=== PATIENT | female | born 1995 | race Caucasian/White ===

== ENCOUNTER 2020-01-07 21:04 | Emergency (ER) | payer SELFPAY ==
[2020-01-07 21:15] VITALS: BP 121/71; PULSE 116; RESP 18; TEMP 37.2; O2SAT 97; BMI 22.3
--- NOTE | 2020-01-07 21:45 | ED_ITS ---
HPI - Fever General: Chief Complaint: Fever Stated Complaint: fever/sob Time Seen by Provider: 01/07/20 21:10 History of Present Illness: HPI Narrative: Patient is a 24-year-old female comes to the ED with a fever, chills, cough body aches. Symptoms started about 4 days ago. Patient has also having nasal congestion and drainage and sore throat. Denies any ear pain, shortness of breath, vomiting, abdominal pain, hematuria, dysuria, diarrhea or constipation. Patient states she feels a little nauseous but does not want any anti-nausea medications while here in the ED. Pt's concerned that their family could have been exposed to COVID-19. Father works for [employer] and heard that 1 of their frequent [employer] customers tested positive for COVID- 19. Associated symptoms: Reports chills, nasal congestion and nausea; Deny abdominal pain, back/flank pain, chest pain, diarrhea, dysuria, headache(s) or vomiting Review of Systems Const: Reports: fever, chills and body aches; Denies: fatigue Eyes: Denies: change in vision or eye discomfort ENMT: Reports: throat pain, painful swallowing, nasal discharge and nasal congestion Card: Denies: chest pain, palpitations, edema, swelling of feet/ankles, shortness of breath on exertion or shortness of breath when lying down Resp: Reports: non-productive cough; Denies: shortness of breath or productive cough GI: Reports: nausea; Denies: abdominal pain, vomiting, diarrhea, constipation or blood in stool : Denies: flank pain, painful urination or blood in urine Musc: Denies: neck pain, back pain or extremity swelling Skin/Breast: Denies: rash or new lesion Neuro: Denies: headache, numbness in extremities or weakness in extremities [facility] PFSH: Social History Smoking and tobacco status: current every day smoker Physical Exam Narrative: EXAM NARRATIVE: Patient is a 24-year-old female who is sitting comfortably in the exam chair when I enter the room. She is showing no signs of acute distress, pain or respiratory distress. Const: COMMON NORMALS: oriented x3 HENMT: COMMON NORMALS: normocephalic and TM's normal bilaterally HEAD & SCALP: normocephalic TYMPANIC MEMBRANE: TM's normal bilaterally MOUTH: oral and palatal mucosa normal THROAT: uvula midline and posterior oropharynx abnormal erythema; no exudates Neck/C-Spine: COMMON NORMALS: supple GENERAL: Yes normal visual inspection Resp: COMMON NORMALS: normal respiratory effort, no retractions, no use of accessory muscles and clear to auscultation bilaterally EFFORT & INSPECTION: Yes able to speak in complete sentences, No respiratory distress, No labored and No audible wheezes AUSCULTATION: clear to auscultation bilaterally and no wheezes Cardio: COMMON NORMALS: regular rate, regular rhythm, S1 normal heart sound, S2 normal heart sound, no gallops, no clicks, no murmurs and peripheral pulses 2+ throughout RATE: regular rate RHYTHM: regular rhythm HEART SOUNDS: S1 normal and S2 normal PERIPHERAL PULSES: pulses 2+ throughout GI: COMMON NORMALS: normal to inspection, nondistended, normoactive bowel sounds, soft to palpation, non-tender and no masses PALPATION: Yes soft : COMMON NORMALS: Yes no CVA tenderness BLADDER/KIDNEY EXAM: Yes no CVA tenderness Back/Pelvis: COMMON NORMALS: no CVA tenderness Extremity: COMMON NORMALS: normal to inspection Neuro: COMMON NORMALS: oriented x3 and moves all extremities Skin: COMMON NORMALS: no rashes or lesions noted GENERAL SKIN EXAM: no rashes or lesions noted and dry skin Course Vital Signs: Vital signs: Vital Signs Temperature 98.9 F 01/07/20 21:15 Pulse Rate 104 H 01/07/20 23:41 Respiratory Rate 17 01/07/20 23:41 Blood Pressure 107/72 01/07/20 23:41 Pulse Oximetry 99 01/07/20 23:41 MDM - Fever Lab Data: Attestation: I reviewed the patient's lab results. Labs: Lab Results 01/07/20 01/07/20 Range/Units 21:35 21:35 Influenza Type A A g Negative (Negative) Influenza Type B A g Negative (Negative) Group A Strep Rapi d Negative (Negative) Imaging Data^: CXR: Attestation: I personally reviewed and interpreted this imaging study as follows: Radiologist's impression: [facility] [address] [address] XRay Report Signed Patient: Yaneli Steel Unit #: [id number] : 1995 Age/Sex: 24 / F ADM Date: 01/07/20 Loc: ER Room/Bed: Attending Dr: Ordering Provider/Ordering MD: Agusto Watts Date of Service: 01/07/20 Procedure(s): XR chest 1V portable [id number] Accession Number(s): [id number] Report Number: [id number] PROCEDURE INFORMATION: Exam: XR Chest, 1 View Exam date and time: 01/07/2020 9:56 PM Age: 24 years old Clinical indication: Cough and fever; Additional info: Fever and cough TECHNIQUE: Imaging protocol: XR of the chest Views: 1 view. COMPARISON: No relevant prior studies available. FINDINGS: Lungs: No CHF/pulmonary edema. Visible lungs appear essentially clear. Pleural space: No visible pneumothorax. No definite pleural fluid. Heart/Mediastinum: Heart size is within normal limits. Bones/joints: No significant acute finding. XR/XR chest 1V portable [id number] IMPRESSION: 1. Unremarkable single view chest. 2. Other findings discussed above. Dictated By: Ousmane Rogers MD Signed By: Ousmane Rogers MD Signed Date/Time: 01/07/202232 DD/ 31 Discharge Plan Discharge Patient Disposition: Home, Self-Care Clinical Impression: Viral syndrome Condition: Stable Prescriptions: No Action No Known Home Medications RF: 0 Discharge Orders: Discharge Order (Routine); Ordered 01/07/20 Ordered By: Agusto Watts Referrals: Agusto Gandhi MD [Family Provider] - Discharge Diet: Regular Discharge Activity: Resume usual activity and Limit activity as instructed Patient Instructions: Viral Syndrome - Adult Activity Restrictions/Additional Instructions: Follow-up with your PCP in 7 to 10 days for reevaluation. Take Tylenol for any fevers. Drink plenty fluids and stay hydrated. COVID-19 testing was performed and results should be complete in the next 48 hours. Self quarantine during that time and if you do test positive self quarantine for 14 days. Return to the ED if you are having worsening symptoms or any trouble breathing. Discharge Date/Time: 01/07/20 23:01 Coding Level of Care Code ED Narrow Fabric Loom Fixer for Hans Fwlelia Exam Comprehensive
[2020-01-07 22:26] LABS: Influenza A by IFA Negative (Negative); Influenza B by IFA Negative (Negative)
[2020-01-07 22:27] VITALS: BP 111/67; PULSE 98; RESP 14; O2SAT 100
[2020-01-07 22:27] LABS: Rapid Strep A Test Negative (Negative)
[2020-01-07 23:03] VITALS: RESP 16
[2020-01-07 23:41] VITALS: BP 107/72; PULSE 104; RESP 17; O2SAT 99
[2020-01-11 08:28] LABS: Coronavirus Overall Results NOT DETECTED
--- NOTE | 2020-01-11 10:18 | PC.NURSE ---
CALLED PT TO INFORM HER THAT HER RESULTS WERE NEGATIVE FOR COVID-19.
== END 2020-01-07 23:01 | disposition home or self-care (01) ==
PROVIDERS: Emergency Provider Physician Assistant; Family Provider Family Medicine
DX: B34.9 Viral infection, unspecified (principal); F17.200 Nicotine dependence, unspecified, uncomplicated
CPT/HCPCS: 12345; 71045; 87081; 87635; 87804; 87880; 99282; 99283

== ENCOUNTER 2021-03-20 11:18 | Emergency (ER) | payer SELFPAY ==
[2021-03-20] VITALS (7 sets, daily range): BP systolic 102–117; BP diastolic 59–73; PULSE 73–79; RESP 16–20; TEMP 36.7–36.8; O2SAT 97–100; BMI 20.7
--- NOTE | 2021-03-20 12:11 | ED_ITS ---
HPI - Abdominal Pain General: Chief Complaint: Abdominal Pain Stated Complaint: 2 months lower ABD pain Time Seen by Provider: 03/20/21 12:02 Source: patient Mode of arrival: ambulatory Limitations: no limitations History of Present Illness: HPI narrative: 25-year-old female patient 3 para 1 with a prior miscarriage who presents to the emergency department with lower abdominal pain. She states that she is about 8 weeks . Abdominal pain has been intermittent and has been going on for about 2 weeks. About 2 days ago she had some spotting but that has spontaneously resolved. Because the pain is persistent she presents to the emergency department to be evaluated. She denies any fever, has nausea and vomiting daily which she thinks is from the . She denies diarrhea. Denies any dysuria or hematuria. MD elicited complaint: abdominal pain Onset (ago): week(s) (2) Pain Consistency: intermittent Location: Other (lower abdomen) Severity: moderate Quality: cramping Radiation: none Exacerbating factors: nothing Relieving factors: nothing Associated Symptoms: Reports nausea and vomiting; Denies anorexia, belching, bloating, change in bowel habits, change in stool character, chills, coffee ground emesis, constipation, GI cramping, diarrhea, dyspepsia, dysuria, excessive flatus, fever(s), heartburn, hematochezia, hematuria, hematemesis, fecal incontinence, loose stools, melena, poor appetite and syncope Review of Systems General: Reports: 10 or more systems reviewed and unremarkable except in HPI and below Const: Denies: fever(s) or chills Card: Denies: syncope GI: Reports: nausea and vomiting; Denies: hematemesis, coffee ground emesis, heartburn, diarrhea, constipation, bloating, GI cramping, belching, excessive flatus, fecal incontinence, change in bowel habits, change in stool character, hematochezia or melena : Denies: dysuria or hematuria PFSH ED PFSH: Social History (Reviewed 03/20/21 @ 12:15 by Felisha Flood MD, [facility] [place] [facility] [place] Smoking and tobacco status: current every day smoker Physical Exam Const: COMMON NORMALS: no acute distress, average body habitus, patient oriented x3, no limitations, healthy appearing, alert and well nourished HENMT: COMMON NORMALS: normocephalic, atraumatic and moist oral mucous membranes HEAD & SCALP: normocephalic and atraumatic Neck/C-Spine: COMMON NORMALS: no meningeal signs and no JVD Resp: COMMON NORMALS: normal respiratory effort, No retractions, No use of accessory muscles, clear to auscultation bilaterally and percussion normal AUSCULTATION: clear to auscultation bilaterally PERCUSSION: percussion normal Cardio: COMMON NORMALS: no JVD, regular rate, regular rhythm, S1 normal heart sound present, S2 normal heart sound present, No gallops present (Cardio), No cl icks present (Cardio), No murmurs present (Cardio), No rub (Cardio) and Peripheral pulses 2+ throughout RATE: regular rate RHYTHM: regular rhythm HEART SOUNDS: S1 normal heart sound present and S2 normal heart sound present PERIPHERAL PULSES: Peripheral pulses 2+ throughout GI: COMMON NORMALS: Normal to inspection, nondistended, normoactive bowel sounds present, Soft to palpation, No hepatosplenomegaly present, no masses and no bruits PALPATION: Yes Soft to palpation, Yes Tenderness to palpation present (GI) (suprapubic) Details: LLQ and RLQ, No Guarding due to palpation present (GI), Yes No hepatosplenomegaly present and No Rebound tenderness present : COMMON NORMALS: Yes no CVA tenderness BLADDER/KIDNEY EXAM: Yes no CVA tenderness Back/Pelvis: COMMON NORMALS: no CVA tenderness Extremity: COMMON NORMALS: normal to inspection, full ROM, capillary refill normal, no calf tenderness and no pedal edema Neuro: COMMON NORMALS: patient oriented x3 SENSORIUM/ORIENTATION: Yes alert MENINGEAL SIGNS: Yes no meningeal signs Course Reevaluation(s): Reevaluation #1: Discussed her lab and imaging findings with her. Also discussed my conversation with Dr. Whatley with her. She strongly counseled that she is not to do any lifting, no sexual intercourse, nothing in her vagina. She chooses to follow-up with Dr. Gandhi. She is advised to call his office tomorrow to schedule an appointment. She voiced understanding and is in agreement with the plan. Time: 14:22 Consultations: Consultation #1: Discussed the patient with Dr. Whatley, target worker on-call. She advised that the patient does not do any lifting, nothing in the vagina, and it showed spontaneously resolved. She needs to follow-up in the clinic. Time: 14:08 Vital Signs: Vital signs: Vital Signs Temperature 98.2 F 03/20/21 13:30 Pulse Rate 73 03/20/21 14:52 Respiratory Rate 18 03/20/21 14:52 Blood Pressure 102/61 03/20/21 14:52 Pulse Oximetry 97 03/20/21 14:52 MDM - Abdominal Pain MDM Narrative: Medical decision making narrative: 25-year-old female who presents to the emergency department with lower abdominal pain. She is in her first trimester. Evaluation in the emergency department including ultrasound shows twin with a small subchorionic hematoma. Beta-hCG quantitative levels are within expected range. She is counseled on no lifting nothing in the vagina to follow-up with her target worker. She is given a work note to reflect this. Medical Records: Attestation: I reviewed the patient's medical records. Lab Data: Attestation: I reviewed the patient's lab results. Labs: Lab Results 03/20/21 03/20/21 03/20/21 Range/Units 12:00 12:15 12:15 WBC 5.2 (4.0-10.0) 10^3/ uL RBC 3.54 L (4.1-5.3) 10^6/u L Hgb 11.3 L (11.5-15.3) g/dL Hct 31.5 L (37.0-47.0) % MCV 89.0 (81-99) fL MCH 31.9 (28.0-34.0) pg MCHC 35.9 (30.0-36.0) g/dL RDW 11.9 L (12.1-15.1) % Plt Count 175 (130-400) 10^3/c mm MPV 11.8 H (7.4-10.4) fL Neut % (Auto) 64.8 % Lymph % (Auto) 25.9 % Pra[place] % (Auto) 5.4 % Eos % (Auto) 2.9 % Baso % (Auto) 0.8 % Neut # (Auto) 3.36 (1.8-7.7) 10^3/u L Lymph # (Auto) 1.3 (0.8-4.8) 10^3/u L Pra[place] # (Auto) 0.3 (0.2-0.9) 10^3/u L Eos # (Auto) 0.2 (0.0-0.8) 10^3/u L Baso # (Auto) 0.0 (0.0-0.1) 10^3/u L Nucleated RBC % (a uto) 0 % Nucleated RBCs # 0.0 /100WBC Sodium 133 L (136-145) mmol/L Potassium 3.7 (3.5-5.1) mmol/L Chloride 100 (98-107) mmol/L Carbon Dioxide 23 (22-29) mmol/L Anion Gap 13.7 (5-19) BUN 5 L (6-20) mg/dL Creatinine 0.4 L (0.5-0.9) mg/dL GFR Calculation 196.1 H (90-130) mL/min Glucose 81 (65-115) mg/dL Calculated Osmolal ity 272 L (285-295) mOsm/k g Calcium 8.9 (8.5-10.5) mg/dL Total Bilirubin 0.4 (0.15-1.2) mg/dL AST 15 (0-32) U/L ALT 17 (0-33) U/L Alkaline Phosphata se 41 (35-105) IU/L Total Protein 6.4 L (6.6-8.7) g/dL Albumin 4.0 (3.5-5.2) g/dL Globulin 2.4 (1.3-4.6) g/dL Lipase 10 L (13-60) U/L Ser , Kaleb i-Qnt 859103.00 mIU/mL Urine Color Straw (Yellow) Urine Appearance Clear (CLEAR) Urine pH 5 (5-7) Ur Specific Gravit y 1.005 (1.005-1.030) Urine Protein Neg (Negative) Urine Glucose (UA) Norm (Normal) Urine Ketones Negative (Negative) Urine Blood Neg (Negative) Urine Nitrate Negative (Negative) Urine Bilirubin Neg (Negative) Urine Urobilinogen Norm (Negative) mg/dL Ur Leukocyte Farida ase Negative (Negative) Imaging Data ^: US OB: Radiologist's impression: [address] [id number] ReportSigned Patient: Yaneli Steel #: [id number]: [id number]#:[id number]/Sex: 25 / FADM Date: 03/20/21Loc: ERRoom/Bed:Attending Dr: Ordering Provider/Ordering MD: Felisha Flood MD, [facility] [place] [facility] [place] Date of Service: 03/20/21 Procedure(s): US OB <= 14 wk fetus twins Accession Number(s): [id number] Report Number: [id number] WS: [id number] ULTRASOUND EARLY TECHNIQUE: Transabdominal sonography of the pelvis was performed. Followed by transvaginal sonography to better evaluate the uterus and ovaries. CLINICAL INFORMATION: lower abd pain, spotting 2 days ago LMP: 01/24/2021 Beta hCG: Unknown. COMPARISON: None. FINDINGS: Suspected early intrauterine twin gestation. Small subchorionic hematoma measuring 1 cc. Subchorionic hematoma measures 1.3 x 1.0 x 1.1 cm. Cervix is closed measuring 4.2 cm FETUS A Estimated gestational age: 7w6d Estimated delivery October 31, 2021 Yolk sac: 0.5 cm. [place] rump length (CRL): 1.5 cm. heart motion: 147 BPM. FETUS B Estimated gestational age: 7w6d Estimated delivery October 31, 2021 Yolk sac: 0.55cm [place] rump length (CRL): 1.46 cm. heart motion: 147 BPM. OVARIES Right ovary: 3.8 x 3.0 x 3.1 cm. Right corpus luteum cyst measuring 1.8 x 2.1 x 1.8 cm Left ovary: 2.0 x 2.5 x 3.2 cm US/US OB <= 14 wk fetus twins IMPRESSION: 1. Single live intrauterine twin . 2. Suggestion of inter-twin membrane although too early to delineate chorionicity 3. Estimated gestational age; 7w6d with estimated delivery October 31, 2021 4. Cervix is long and closed. 5. Small amount of subchorionic hematoma measuring 1 cc. 6. Right corpus luteum cyst measuring 1.8 x 2.1 x 1.8 cm Dictated By:Zachary Jennings MDSigned By:Zachary Jennings MDSigned Date/Time:03/20/21 1334DD/ 1320 Discharge Plan Discharge Patient Disposition: Home Clinical Impression: Subchorionic hematoma in first trimester Qualifiers: Fetus number: single or unspecified fetus Qualified Code(s): O41.8X10 - Other specified disorders of amniotic fluid and membranes, first trimester, not applicable or unspecified Twin gestation in first trimester Qualifiers: Multiple gestation type: unspecified Qualified Code(s): O30.001 - Twin , unspecified number of placenta and unspecified number of amniotic sacs, first trimester Condition: Stable Prescriptions: No Action No Known Home Medications RF: 0 Discharge Orders: Discharge ED (Routine); Ordered 03/20/21 Ordered By: Felisha Flood Referrals: Agusto Gandhi MD [Physician] - 1-3 days Discharge Diet: Usual diet Discharge Activity: Limit activity as instructed Patient Instructions: Threatened Miscarriage (ED), Abdominal Pain in (ED) Activity Restrictions/Additional Instructions: Return for any new or worsening symptoms. Follow-up with Dr. Gandhi as soon as possible. No lifting, no sex, nothing in the vagina until you are cleared by Dr. Gandhi. Stand Alone Forms: Work/School Release Coding Level of Care Code ED Inspector Receiving for Chg Fwd Exam Comprehensive
[2021-03-20 12:18] LABS: Add Urine Microscopic? NO; Charge for UA Resulting for Rev
[2021-03-20 12:28] LABS: Bilirubin Urine Neg (Negative); Blood Urine Neg (Negative); Glucose Urine UA Norm (Normal); Ketones Urine Negative (Negative); Leukocyte Esterase Urine Negative (Negative); Nitrate Urine Negative (Negative); Protein Urine Neg (Negative); Specific Gravity, Urine 1.005 (1.005-1.030); Urine Appearance Clear (CLEAR); Urine Color Straw (Yellow); Urobilinogen Urine Norm (Negative); pH Urine 5 (5-7)
[2021-03-20 12:43] LABS: Basophils % 0.8 %; Eosinophils # 0.2 10^3/uL (0.0-0.8); Eosinophils % 2.9 %; Hematocrit 31.5 % (37.0-47.0); Hemoglobin 11.3 g/dL (11.5-15.3); Lymphocytes # 1.3 10^3/uL (0.8-4.8); Lymphocytes % 25.9 %; Mean Corpuscular HGB Conc 35.9 g/dL (30.0-36.0); Mean Corpuscular Hemoglobin 31.9 pg (28.0-34.0); Mean Platelet Volume 11.8 fL (7.4-10.4); Monocytes # 0.3 10^3/uL (0.2-0.9); Monocytes % 5.4 %; Neutrophils # 3.36 10^3/uL (1.8-7.7); Neutrophils % 64.8 %; Nucleated Red Blood Cells % 0 %; Platelet Count 175 10^3/cmm (130-400); Red Blood Count 3.54 10^6/uL (4.1-5.3); Red Cell Distribution Width 11.9 % (12.1-15.1); White Blood Count 5.2 10^3/uL (4.0-10.0)
[2021-03-20 13:31] LABS: Alanine Aminotransferase 17 U/L (0-33); Alkaline Phosphatase 41 IU/L (35-105); Anion Gap 13.7 (5-19); Aspartate Amino Transferase 15 U/L (0-32); Blood Urea Nitrogen 5 mg/dL (6-20); Calcium 8.9 mg/dL (8.5-10.5); Carbon Dioxide 23 mmol/L (22-29); Chloride 100 mmol/L (98-107); Globulin 2.4 g/dL (1.3-4.6); Glomerular Filtration Rate 196.1 mL/min (90-130); Glucose 81 mg/dL (65-115); Lipase 10 U/L (13-60); Osmolality Calculated 272 mOsm/kg (285-295); Potassium 3.7 mmol/L (3.5-5.1); Sodium 133 mmol/L (136-145); Total Bilirubin 0.4 mg/dL (0.15-1.2); Total Protein 6.4 g/dL (6.6-8.7)
== END 2021-03-20 14:44 | disposition home or self-care (01) ==
PROVIDERS: Emergency Provider Family Medicine
DX: O41.8X10 Other specified disorders of amniotic fluid and membranes, first trimester, not applicable or unspecified (principal); O30.001 Twin pregnancy, unspecified number of placenta and unspecified number of amniotic sacs, first trimester; Z3A.01 Less than 8 weeks gestation of pregnancy; F17.210 Nicotine dependence, cigarettes, uncomplicated
CPT/HCPCS: 76801; 76802; 80053; 81003; 83690; 84702; 85025; 99283

== ENCOUNTER → 2021-03-26 14:02 | Outpatient (BNVA) | payer MEDICAID, SELFPAY | PROVIDERS: Visit Provider Nurse Practitioner Women's Health | DX: N92.6 Irregular menstruation, unspecified (principal); O30.001 Twin pregnancy, unspecified number of placenta and unspecified number of amniotic sacs, first trimester | CPT/HCPCS: 81025 ==

== ENCOUNTER → 2021-04-03 13:52 | Outpatient (BNVA) | payer BC, MEDICAID, SELFPAY | PROVIDERS: Visit Provider Nurse Practitioner Women's Health | DX: Z34.80 Encounter for supervision of other normal pregnancy, unspecified trimester (principal); Z81.0 Family history of intellectual disabilities | CPT/HCPCS: 81000 ==

== ENCOUNTER → 2021-04-12 14:02 | Outpatient (BNVA) | payer BC, MEDICAID, SELFPAY | PROVIDERS: Visit Provider Obstetrics & Gynecology | DX: O09.899 Supervision of other high risk pregnancies, unspecified trimester (principal) | CPT/HCPCS: 80307; 81000; 85025; 86592; 86762; 86803; 86850; 86900; 87086; 87340; 87806 ==

== ENCOUNTER → 2021-04-17 15:07 | Outpatient (BNVA) | payer BC, MEDICAID, SELFPAY | PROVIDERS: Visit Provider Obstetrics & Gynecology | DX: O09.899 Supervision of other high risk pregnancies, unspecified trimester (principal); Z12.4 Encounter for screening for malignant neoplasm of cervix; Z11.3 Encounter for screening for infections with a predominantly sexual mode of transmission; O30.001 Twin pregnancy, unspecified number of placenta and unspecified number of amniotic sacs, first trimester; O99.331 Smoking (tobacco) complicating pregnancy, first trimester; Z81.0 Family history of intellectual disabilities | CPT/HCPCS: 81000; 87491; 87591; 87661; 88175 ==

== ENCOUNTER 2021-04-27 23:21 | Emergency (ER) | payer BC, MEDICAID, SELFPAY ==
[2021-04-27 23:43] VITALS: BP 100/68; PULSE 96; RESP 20; TEMP 36.1; O2SAT 100; BMI 20.8
--- NOTE | 2021-04-27 23:55 | ED_ITS ---
HPI - General: Chief complaint: Vaginal Bleeding Stated complaint: 13 WKS /BLEEDING Time Seen by Provider: 04/27/21 23:27 Source: patient Mode of arrival: ambulatory Limitations: no limitations History of Present Illness: HPI Narrative: 25-year-old female is currently 13 weeks states that she had intercourse roughly 1 hour ago and had some slight bleeding afterwards. States that she had some spotting not enough to even notice on the pad she states she noticed the spotting when wiping. She had some cramping as well that is since resolved. She states her bleeding is resolved as well. Denies any vomiting or diarrhea. Denies any vaginal discharge. Associated symptoms: Deny abdominal pain, headache(s), nausea or vomiting Review of Systems Const: Denies: fever(s), chills, body aches or change in appetite Eyes: Denies: blurry vision or eye discomfort ENMT: Denies: throat pain or dental pain Card: Denies: chest pain Resp: Denies: dyspnea GI: Denies: abdominal pain, nausea, vomiting or diarrhea : Reports: vaginal bleeding Musc: Denies: neck pain or back pain Skin/Breast: Denies: rash Neuro: Denies: headache(s) Psych: Denies: depression Mariano/Lymph: Denies: easy bruising All/Imm: Denies: urticaria PFSH ED PFSH: Medical History No pertinent past medical history neghx: htn,dm,thyroid,dvt/pe PCP: None Surgical History Hx of appendectomy (~2018) Family History Father Colon cancer dx age 51 Hypertension Denies family history of Ovarian cancer Diabetes Heart disease Hypercholesteremia Breast cancer Uterine cancer Thyroid disease Stroke Social History Smoking and tobacco status: current every day smoker Physical Exam Const: COMMON NORMALS: no acute distress, patient oriented x3 and healthy chance earing HENMT: COMMON NORMALS: normocephalic and atraumatic HEAD & SCALP: normocephalic and atraumatic Eye: COMMON NORMALS: Equal, round and reactive pupils present and EOMs intact bilaterally PUPIL: Yes Equal, round and reactive pupils present Neck/C-Spine: COMMON NORMALS: full ROM and supple Chest: COMMONS NORMALS: normal inspection of the chest and normal palpation of entire chest wall Resp: COMMON NORMALS: normal respiratory effort, No retractions, No use of accessory muscles and clear to auscultation bilaterally AUSCULTATION: clear to auscultation bilaterally Cardio: COMMON NORMALS: regular rate, regular rhythm and No murmurs present (Cardio) RATE: regular rate RHYTHM: regular rhythm GI: COMMON NORMALS: Normal to inspection, nondistended, normoactive bowel sounds present, Soft to palpation, non-tender and no masses PALPATION: Yes Soft to palpation Extremity: COMMON NORMALS: normal to inspection and full ROM Neuro: COMMON NORMALS: patient oriented x3, moves all extremities and no focal motor deficits Psych: COMMON NORMALS: mental status grossly normal, Normal thought process present and cooperative THOUGHT PROCESS: Normal thought process present Skin: COMMON NORMALS: no rashes or lesions noted and no wounds GENERAL SKIN EXAM: no rashes or lesions noted Course Vital Signs: Vital signs: Vital Signs Temperature 96.9 F L 04/27/21 23:43 Pulse Rate 96 04/27/21 23:43 Respiratory Rate 20 H 04/27/21 23:43 Blood Pressure 100/68 04/27/21 23:43 Pulse Oximetry 100 04/27/21 23:43 MDM - OB/Uterine Contractions MDM Narrative: Medical decision making narrative: Patient presents with slight bleeding after intercourse likely from intercourse. Did a bedside ultrasound that did show twin consistent with dates both fetuses were moving heart rate of 81 was 154 heart rate of 82 was 148. Ultrasound was normal. Patient refused a pelvic exam here and her bleeding is been very minimal. Patient's Rh type is positive. She is stable for discharge is to follow-up with her OB next week and return if worsening. Discharge Plan Discharge Patient Disposition: Home Clinical Impression: Threatened miscarriage Condition: Stable Prescriptions: No Action prenat.vits,ladonna,bfk-tepi-oldsw Tablet 1 tab PO DAILY RF: 0 ferrous sulfate 325 mg (65 mg iron) tablet 325 mg PO DAILY RF: 0 Discharge Orders: Discharge ED (Routine); Ordered 04/27/21 Ordered By: Estela Mccray Discharge Diet: Advance as tolerated Discharge Activity: Resume usual activity Patient Instructions: Threatened Miscarriage (ED) Coding Level of Care Code ED As[employer]er [employer] for Hans Sweeney
[2021-04-28 00:03] VITALS: BP 100/68; PULSE 98; RESP 20; TEMP 36.1; O2SAT 100
== END 2021-04-28 00:04 | disposition home or self-care (01) ==
PROVIDERS: Emergency Provider Emergency Medicine
DX: O20.0 Threatened abortion (principal); O99.331 Smoking (tobacco) complicating pregnancy, first trimester; F17.200 Nicotine dependence, unspecified, uncomplicated; Z3A.13 13 weeks gestation of pregnancy
CPT/HCPCS: 99281

== ENCOUNTER → 2021-05-13 13:31 | Outpatient (BNVA) | payer BC, MEDICAID, SELFPAY | PROVIDERS: Visit Provider Obstetrics & Gynecology | DX: O09.899 Supervision of other high risk pregnancies, unspecified trimester (principal); O09.892 Supervision of other high risk pregnancies, second trimester; O30.002 Twin pregnancy, unspecified number of placenta and unspecified number of amniotic sacs, second trimester; O99.332 Smoking (tobacco) complicating pregnancy, second trimester; F17.210 Nicotine dependence, cigarettes, uncomplicated; Z81.0 Family history of intellectual disabilities; Z3A.15 15 weeks gestation of pregnancy | CPT/HCPCS: 80307; 81000 ==

== ENCOUNTER 2021-06-05 16:03 | Emergency (ER) | payer BC, MEDICAID, SELFPAY ==
[2021-06-05 17:02] VITALS: BP 105/71; PULSE 91; RESP 17; TEMP 36.8; O2SAT 99
[2021-06-05 20:02] LABS: Basophils # 0.1 10^3/uL (0.0-0.1); Basophils % 0.5 %; Eosinophils # 0.2 10^3/uL (0.0-0.8); Eosinophils % 1.5 %; Hematocrit 31.8 % (37.0-47.0); Hemoglobin 10.7 g/dL (11.5-15.3); Lymphocytes # 1.9 10^3/uL (0.8-4.8); Lymphocytes % 17.1 %; Mean Corpuscular HGB Conc 33.6 g/dL (30.0-36.0); Mean Corpuscular Hemoglobin 31.2 pg (28.0-34.0); Mean Corpuscular Volume 92.7 fl (81-99); Mean Platelet Volume 11.3 fL (7.4-10.4); Monocytes # 0.5 10^3/uL (0.2-0.9); Monocytes % 4.8 %; Neutrophils # 8.26 10^3/uL (1.8-7.7); Neutrophils % 75.6 %; Nucleated Red Blood Cells % 0 %; Platelet Count 243 10^3/cmm (130-400); Red Blood Count 3.43 10^6/uL (4.1-5.3); Red Cell Distribution Width 15.9 % (12.1-15.1); White Blood Count 10.9 10^3/uL (4.0-10.0)
--- NOTE | 2021-06-05 20:53 | W.ED.PREGNAN ---
HPI - General: Chief complaint: Vaginal Bleeding Stated complaint: 19 WKS PREG, CLOTTING & BLEEDING/OB SD ER 1ST Time Seen by Provider: 06/05/21 20:53 History of Present Illness: HPI Narrative: Ms Steel is a 26-year-old lady currently approximately 19 weeks who presents the emergency department due to vaginal bleeding and passing clots. Patient reports first having symptoms with this at approximately 2 months along after having sexual intercourse. Since that time she has had intermittent spotting however the past 8 days she has had significantly more bleeding and passing clots. She endorses no associated significant pain with this. She does have urinary frequency. Overall she is using 6-8 pads per day. She denies abdominal trauma. No other significant changes in health reported, no known provoking, exacerbating, or alleviating factors Date of Last Menstrual Period: 01/23/21 Review of Systems General: Reports: 10 or more systems reviewed and unremarkable except in HPI and below Narrative: CONSTITUTIONAL: denies fever, fatigue, weakness EYES - denies pain, denies loss of vision NOSE - denies congestion or rhinorrhea. THROAT - denies sore throat or difficulty swallowing. CARDIOVASCULAR - denies chest pain and palpitations RESPIRATORY - denies shortness of breath and cough GASTROINTESTINAL - denies abdominal pain, no nausea vomiting, no changes in bowel habits GENITOURINARY - denies dysuria or urinary frequency. See HPI. MUSCULOSKELETAL- denies deformity or pain SKIN - denies rashes or new changed skin lesions NEUROLOGIC - denies focal weakness or sensory changes HEMATOLOGIC/LYMPHATIC - denies easy bruising or lymphadenopathy. [facility] ED PFSH: Medical History No pertinent past medical history neghx: htn,dm,thyroid,dvt/pe PCP: None Surgical History Hx of appendectomy (~2018) Family History Father Colon cancer dx age 51 Hypertension Denies family history of Ovarian cancer Diabetes Heart disease Hypercholesteremia Breast cancer Uterine cancer Thyroid disease Stroke Social History Smoking and tobacco status: current every day smoker Female Reproductive History: Date of last menstrual period: 01/23/21 Physical Exam Narrative: EXAM NARRATIVE: GENERAL/CONSTITUTIONAL - well-appearing. No acute distress. Eyes - PERRL, no conjunctival injection ENMT - Atraumatic external nose and ears. Moist mucous membranes NECK - supple. trachea midline CARDIOVASCULAR - regular rate and rhythm. Peripheral pulses 2+ and equal RESPIRATORY -clear to auscultation bilaterally. No retractions or accessory muscle use. ABDOMEN/GI - Generalized mild tenderness worse in the right hemiabdomen. gravid. No tenderness to percussion or evidence of peritonitis PROJECT SPECIALIST-performed with planetarium technician present. No external lesions, small amount of blood at the introitus dark red. Cervix visually closed. No lacerations or cause of bleeding from inside the vagina. Small amount of dark red blood appears at the cervix. MSK - Extremities without obvious deformity or tenderness to palpation SKIN - Warm, Dry NEURO - alert and appropriately oriented. strength and sensation intact. Moves all extremities equally. PSYCH - Appropriate mood and affect Course ED course: - Patient was seen and evaluated by me at bedside - Patient placed on cardiac monitors, IV access obtained - Initial evaluation notable for as noted above - Labs notable for minimal leukocytosis, normocytic anemia. No significant metabolic abnormalities to explain symptoms. - Ultrasound ordered. - Patient care handed off to overnight physician pending results of ultrasound for disposition. Vital Signs: Vital signs: Vital Signs Temperature 98.3 F 06/05/21 17:02 Pulse Rate 78 06/06/21 00:39 Respiratory Rate 18 06/06/21 00:39 Blood Pressure 122/82 06/06/21 00:39 Pulse Oximetry 98 06/06/21 00:39 MDM - OB/Uterine Contractions Medical Records: Attestation: I reviewed the patient's medical records. Lab Data: Attestation: I reviewed the patient's lab results. Labs: Lab Results 06/05/21 06/05/21 06/05/21 Range/Units 19:57 19:57 21:40 WBC 10.9 H (4.0-10.0) 10^3/ uL RBC 3.43 L (4.1-5.3) 10^6/u L Hgb 10.7 L (11.5-15.3) g/dL Hct 31.8 L (37.0-47.0) % MCV 92.7 (81-99) fl MCH 31.2 (28.0-34.0) pg MCHC 33.6 (30.0-36.0) g/dL RDW 15.9 H (12.1-15.1) % Plt Count 243 (130-400) 10^3/c mm MPV 11.3 H (7.4-10.4) fL Neut % (Auto) 75.6 % Lymph % (Auto) 17.1 % Bent % (Auto) 4.8 % Eos % (Auto) 1.5 % Baso % (Auto) 0.5 % Neut # (Auto) 8.26 H (1.8-7.7) 10^3/u L Lymph # (Auto) 1.9 (0.8-4.8) 10^3/u L [place] # (Auto) 0.5 (0.2-0.9) 10^3/u L Eos # (Auto) 0.2 (0.0-0.8) 10^3/u L Baso # (Auto) 0.1 (0.0-0.1) 10^3/u L Nucleated RBC % (a uto) 0 % Nucleated RBCs # 0.0 /100WBC Sodium 134 L (136-145) mmol/L Potassium 4.2 (3.5-5.1) mmol/L Chloride 100 (98-107) mmol/L Carbon Dioxide 23 (22-29) mmol/L Anion Gap 15.2 (5-19) BUN 4 L (6-20) mg/dL Creatinine 0.3 L (0.5-0.9) mg/dL GFR Calculation 271.1 H (90-130) mL/min Glucose 89 (65-115) mg/dL Calculated Osmolal ity 274 L (285-295) mOsm/k g Calcium 9.3 (8.5-10.5) mg/dL Total Bilirubin 0.3 (0.15-1.2) mg/dL AST 13 (0-32) U/L ALT 10 (0-33) U/L Alkaline Phosphata se 110 H (35-105) IU/L Total Protein 6.7 (6.6-8.7) g/dL Albumin 3.7 (3.5-5.2) g/dL Globulin 3.0 (1.3-4.6) g/dL Urine Color Other (Yellow) Urine Appearance Clear (CLEAR) Urine pH 6.5 (5-7) Ur Specific Gravit y 1.005 (1.005-1.030) Urine Protein Neg (Negative) Urine Glucose (UA) Norm (Normal) Urine Ketones Negative (Negative) Urine Blood 3+ H (Negative) Urine Nitrate Negative (Negative) Urine Bilirubin Neg (Negative) Urine Urobilinogen Norm (Negative) mg/dL Ur Leukocyte Farida ase 2+ H (Negative) Urine RBC Too numerous to c nt H (0-2) /hpf Urine WBC >100 H (0-5) /hpf Ur Squamous Epith Cells 0-4 H (0-5) /hpf Amorphous Sediment Not Reportable Urine Bacteria Trace (NONE) /hpf Discharge Plan Discharge Patient Disposition: Home Clinical Impression: Multiple gestation, Vaginal bleeding, Threatened , Abnormal urinalysis Condition: Stable Prescriptions: New nitrofurantoin macrocrystal 100 mg capsule 100 mg PO BID 10 Days Qty: 20 RF: 0 No Action prenat.vits,ladonna,iif-yjbb-aogsr Tablet 1 tab PO DAILY RF: 0 ferrous sulfate 325 mg (65 mg iron) tablet 325 mg PO DAILY RF: 0 Discharge Orders: Discharge ED (Routine); Ordered 06/06/21 Ordered By: Estela Mccray Discharge Diet: Usual diet Discharge Activity: Resume usual activity Patient Instructions: Hematuria - Female, Threatened Miscarriage (ED) Activity Restrictions/Additional Instructions: Thank you for visiting the emergency department. You were seen and evaluated for vaginal bleeding in the context of . On visual examination your cervical os was closed. Ultrasound results were as discussed. You were found to have abnormal urinalysis which is difficult to interpret in the context of ongoing vaginal bleeding however you will be given a prescription for antibiotics for possibility of a urine infection. Please follow-up with your sql data architect. Please follow-up with your primary care provider. Please return to the emergency department if you experience worsening of your symptoms, shortness of breath, chest pain, syncope, lightheadedness, or anything else that you are concerned about and feel needs emergency department evaluation. Coding Level of Care Code ED Cook Hel[employer] for Hans Sweeney
[2021-06-05 21:20] LABS: Alanine Aminotransferase 10 U/L (0-33); Albumin Level 3.7 g/dL (3.5-5.2); Alkaline Phosphatase 110 IU/L (35-105); Anion Gap 15.2 (5-19); Aspartate Amino Transferase 13 U/L (0-32); Blood Urea Nitrogen 4 mg/dL (6-20); Calcium 9.3 mg/dL (8.5-10.5); Carbon Dioxide 23 mmol/L (22-29); Chloride 100 mmol/L (98-107); Glomerular Filtration Rate 271.1 mL/min (90-130); Glucose 89 mg/dL (65-115); Osmolality Calculated 274 mOsm/kg (285-295); Potassium 4.2 mmol/L (3.5-5.1); Sodium 134 mmol/L (136-145); Total Bilirubin 0.3 mg/dL (0.15-1.2); Total Protein 6.7 g/dL (6.6-8.7)
[2021-06-05 21:57] LABS: Bilirubin Urine Neg (Negative); Blood Urine 3+ (Negative); Glucose Urine UA Norm (Normal); Ketones Urine Negative (Negative); Nitrate Urine Negative (Negative); Protein Urine Neg (Negative); Specific Gravity, Urine 1.005 (1.005-1.030); Urine Appearance Clear (CLEAR); Urine Color Other (Yellow); Urobilinogen Urine Norm (Negative); pH Urine 6.5 (5-7)
[2021-06-05 21:58] LABS: Add Urine Microscopic? YES; Leukocyte Esterase Urine 2+ (Negative); RBC Urine TOO NUMEROUS TO CNT /hpf (0-2)
[2021-06-05 21:59] LABS: Add Urine Culture? Yes; Bacteria Urine TRACE /hpf; Squamous Epithelial Cell Urine 0-4 /hpf (0-5); WBC Urine >100 /hpf (0-5)
--- NOTE | 2021-06-05 22:03 | USR_ITS ---
PROCEDURE INFORMATION: Exam: US , Limited Exam date and time: 06/05/2021 10:03 PM Age: 26 years old Clinical indication: complicated by abdominal or pelvic pain; Right lower quadrant; Second trimester (14 weeks 0 days to 27 weeks 6 days); Gestational age or lmp: 18w 1 day; ; Patient HX: Twins on sac; Additional info: Vaginal bleeding TECHNIQUE: Imaging protocol: Real-time ultrasound of the maternal uterus with image documentation. Exam focused on the clinical indication. COMPARISON: US OB limited [facility] 05/08/2021 10:46 AM FINDINGS: Viable twin intrauterine . A dividing membrane is not definitely visualized on the provided images. Therefore, this may represent a mono-amniotic gestation. Overall, amniotic fluid volume appears within normal limits in the presumed single gestational sac. Placental tissue is all seen posteriorly. No visible placental abnormality on the provided images. Twin A: Cephalic position. heart activity documented by the technologist, 160 bpm. Complete measurements were not obtained at this time. Femur length of 3.0 cm corresponds to 19 weeks, 2 days. Twin B: Breech position. heart activity documented by the technologist, 164 bpm. Complete measurements were not obtained at this time. Femur length of 2.5 cm corresponds to 17 weeks, 5 days. Evaluation of anatomy was not performed at this time. Followup/complete evaluation of anatomy recommended, if not already performed, and as clinically appropriate. No visible maternal adnexal abnormality. The urinary bladder was not completely evaluated/imaged at this time. US/US OB >= 14 wk fetus twins IMPRESSION: 1. Viable twin intrauterine , see above details. 2. A dividing membrane is not definitely visualized at this time. Therefore, this may represent a mono-amniotic gestation. 3. Overall, amniotic fluid volume appears within normal limits in the presumed single gestational sac. 4. Posterior placental tissue. No visible placental abnormality on the provided images. 5. Other details discussed above.
[2021-06-05] MEDS: lactated ringers 1,000 ML 999 ML IV (22:37)
[2021-06-06 00:39] VITALS: BP 122/82; PULSE 78; RESP 18; O2SAT 98
== END 2021-06-06 00:35 | disposition home or self-care (01) ==
PROVIDERS: Emergency Medicine; Absent Provider Obstetrics & Gynecology; Emergency Provider Emergency Medicine
DX: O20.0 Threatened abortion (principal); O30.012 Twin pregnancy, monochorionic/monoamniotic, second trimester; Z3A.18 18 weeks gestation of pregnancy; R82.90 Unspecified abnormal findings in urine; O99.332 Smoking (tobacco) complicating pregnancy, second trimester; F17.210 Nicotine dependence, cigarettes, uncomplicated
CPT/HCPCS: 76805; 76810; 76817; 80053; 81001; 85025; 87086; 87210; 96360; 99283; E0352

== ENCOUNTER 2021-06-11 03:38 | Emergency (ER) | payer BC, MEDICAID, SELFPAY ==
[2021-06-11 03:43] VITALS: BP 107/63; PULSE 93; RESP 18; TEMP 36.6; O2SAT 99; BMI 21.9
--- NOTE | 2021-06-11 03:44 | USR_ITS ---
PROCEDURE INFORMATION: Exam: US Nonobstetric Pelvis; Complete Exam date and time: 06/11/2021 3:44 AM Age: 26 years old Clinical indication: Other: Miscarriage of twins TECHNIQUE: Imaging protocol: Transabdominal pelvic nonobstetric ultrasound. Complete exam. Real time ultrasound with image documentation. COMPARISON: US OB >= 14 wk fetus twins 06/05/2021 10:37 PM FINDINGS: Uterus/cervix: The uterus measures 15.4 x 7.5 x 8.5 cm. Small amounts of echogenic material present in the uterus and cervix. No vascularity. Right adnexa: Right ovary is normal and measures 9.4 x 3.5 x 1.8 cm. Normal ovarian blood flow. Left adnexa: Left ovary is normal and measures 1.5 x 3.5 x 3 cm . Normal ovarian blood flow. Intraperitoneal space: No intraperitoneal fluid. Urinary bladder: Normal. US/US pelvic complete* [id number] IMPRESSION: Small amounts of retained material present in the endometrial canal and cervix without vascularity.
--- NOTE | 2021-06-11 03:45 | W.ED.PREGNAN ---
HPI - General: Chief complaint: OB/Uterine Contractions Stated complaint: MISCARRIAGE Time Seen by Provider: 06/11/21 03:39 Source: patient and EMS Mode of arrival: EMS Limitations: no limitations History of Present Illness: HPI Narrative: 26-year-old female is roughly 20 weeks with twins. She states that earlier tonight she started having bleeding and states she had miscarried both fetuses. EMS arrived he states that she had miscarriage in both fetuses were not viable. States she is having lower abdominal pain she rates a 5 out of 10. States she is also having vaginal bleeding. She denies any lightheadedness. Denies any worsening improving factors. Date of Last Menstrual Period: 01/23/21 Associated symptoms: Reports abdominal pain; Deny headache(s) Review of Systems Const: Denies: fever(s), chills, body aches or change in appetite Eyes: Denies: blurry vision or eye discomfort ENMT: Denies: throat pain or dental pain Card: Denies: chest pain Resp: Denies: dyspnea GI: Reports: abdominal pain : Reports: vaginal bleeding Musc: Denies: neck pain or back pain Skin/Breast: Denies: rash Neuro: Denies: headache(s) Psych: Denies: depression Mariano/Lymph: Denies: easy bruising All/Imm: Denies: urticaria PFSH ED PFSH: Medical History No pertinent past medical history neghx: htn,dm,thyroid,dvt/pe PCP: None Surgical History Hx of appendectomy (~2018) Family History Father Colon cancer dx age 51 Hypertension Denies family history of Ovarian cancer Diabetes Heart disease Hypercholesteremia Breast cancer Uterine cancer Thyroid disease Stroke Social History Smoking and tobacco status: current every day smoker Female Reproductive History: Date of last menstrual period: 01/23/21 Course Vital Signs: Vital signs: Vital Signs Temperature 97.9 F 06/11/21 06:32 Pulse Rate 90 06/11/21 06:32 Respiratory Rate 14 06/11/21 06:32 Blood Pressure 108/65 06/11/21 06:32 Pulse Oximetry 97 06/11/21 06:32 MDM - OB/Uterine Contractions MDM Narrative: Medical decision making narrative: Patient presents here with a miscarriage. Did remove a large clot from her cervix her bleeding is since slowed significantly since then. She feels improved and feels she is stable for discharge. She is to follow-up with her OB in 1 to 2 days return to ER if worsening. She understands and agrees to plan. Lab Data: Labs: Lab Results 06/11/21 06/11/21 Range/Units 03:40 03:40 WBC 9.4 (4.0-10.0) 10^3/ uL RBC 3.26 L (4.1-5.3) 10^6/u L Hgb 10.1 L (11.5-15.3) g/dL Hct 31.2 L (37.0-47.0) % MCV 95.7 (81-99) fl MCH 31.0 (28.0-34.0) pg MCHC 32.4 (30.0-36.0) g/dL RDW 16.3 H (12.1-15.1) % Plt Count 222 (130-400) 10^3/c mm MPV 11.4 H (7.4-10.4) fL Neut % (Auto) 70.3 % Lymph % (Auto) 20.6 % [place] % (Auto) 5.8 % Eos % (Auto) 2.1 % Baso % (Auto) 0.5 % Neut # (Auto) 6.63 (1.8-7.7) 10^3/u L Lymph # (Auto) 1.9 (0.8-4.8) 10^3/u L [place] # (Auto) 0.6 (0.2-0.9) 10^3/u L Eos # (Auto) 0.2 (0.0-0.8) 10^3/u L Baso # (Auto) 0.1 (0.0-0.1) 10^3/u L Nucleated RBC % (a uto) 0 % Nucleated RBCs # 0.0 /100WBC Sodium 136 (136-145) mmol/L Potassium 3.9 (3.5-5.1) mmol/L Chloride 102 (98-107) mmol/L Carbon Dioxide 22 (22-29) mmol/L Anion Gap 15.9 (5-19) BUN 6 (6-20) mg/dL Creatinine 0.4 L (0.5-0.9) mg/dL GFR Calculation 194.5 H (90-130) mL/min Glucose 91 (65-115) mg/dL Calculated Osmolal ity 279 L (285-295) mOsm/k g Calcium 9.3 (8.5-10.5) mg/dL Total Bilirubin 0.2 (0.15-1.2) mg/dL AST 14 (0-32) U/L ALT 8 (0-33) U/L Alkaline Phosphata se 120 H (35-105) IU/L Total Protein 6.4 L (6.6-8.7) g/dL Albumin 3.4 L (3.5-5.2) g/dL Globulin 3.0 (1.3-4.6) g/dL Discharge Plan Discharge Patient Disposition: Home Clinical Impression: Complete miscarriage Condition: Stable Prescriptions: No Action prenat.vits,ladonna,ukh-ouja-ffjof Tablet 1 tab PO DAILY RF: 0 ferrous sulfate 325 mg (65 mg iron) tablet 325 mg PO DAILY RF: 0 nitrofurantoin macrocrystal 100 mg capsule 100 mg PO BID 10 Days Qty: 20 RF: 0 Discharge Orders: Discharge ED (Routine); Ordered 06/11/21 Ordered By: Estela Mccray Referrals: Scarlet Whatley MD [Physician] - 1-3 days Discharge Diet: Advance as tolerated Discharge Activity: Resume usual activity Patient Instructions: Spontaneous Miscarriage (ED) Coding Level of Care Code ED Thread Tool Grinder Set Up Operator for Hans Sweeney
[2021-06-11 03:52] VITALS: RESP 22; O2SAT 98
[2021-06-11 03:52] LABS: Basophils # 0.1 10^3/uL (0.0-0.1); Basophils % 0.5 %; Eosinophils # 0.2 10^3/uL (0.0-0.8); Eosinophils % 2.1 %; Hematocrit 31.2 % (37.0-47.0); Hemoglobin 10.1 g/dL (11.5-15.3); Lymphocytes # 1.9 10^3/uL (0.8-4.8); Lymphocytes % 20.6 %; Mean Corpuscular HGB Conc 32.4 g/dL (30.0-36.0); Mean Corpuscular Volume 95.7 fl (81-99); Mean Platelet Volume 11.4 fL (7.4-10.4); Monocytes # 0.6 10^3/uL (0.2-0.9); Monocytes % 5.8 %; Neutrophils # 6.63 10^3/uL (1.8-7.7); Neutrophils % 70.3 %; Nucleated Red Blood Cells % 0 %; Platelet Count 222 10^3/cmm (130-400); Red Blood Count 3.26 10^6/uL (4.1-5.3); Red Cell Distribution Width 16.3 % (12.1-15.1); White Blood Count 9.4 10^3/uL (4.0-10.0)
[2021-06-11] MEDS: HYDROmorphone 1 mg/mL INJ 1 mL IVP (03:52)
[2021-06-11] MEDS: ondansetron 2 mg/ML SDV 2 mL 4 MG IVP (03:53)
--- NOTE | 2021-06-11 03:55 | PC.NURSE ---
pt states she is 19 weeks 6 days
[2021-06-11 04:08] VITALS: BP 108/65; PULSE 90; RESP 14; O2SAT 97
[2021-06-11 04:20] LABS: Alanine Aminotransferase 8 U/L (0-33); Albumin Level 3.4 g/dL (3.5-5.2); Alkaline Phosphatase 120 IU/L (35-105); Anion Gap 15.9 (5-19); Aspartate Amino Transferase 14 U/L (0-32); Blood Urea Nitrogen 6 mg/dL (6-20); Calcium 9.3 mg/dL (8.5-10.5); Carbon Dioxide 22 mmol/L (22-29); Chloride 102 mmol/L (98-107); Glomerular Filtration Rate 194.5 mL/min (90-130); Glucose 91 mg/dL (65-115); Osmolality Calculated 279 mOsm/kg (285-295); Potassium 3.9 mmol/L (3.5-5.1); Sodium 136 mmol/L (136-145); Total Bilirubin 0.2 mg/dL (0.15-1.2); Total Protein 6.4 g/dL (6.6-8.7)
[2021-06-11] MEDS: miSOPROStol 200 mcg Tablet 600 MCG PO (05:27)
[2021-06-11 06:32] VITALS: BP 108/65; PULSE 90; RESP 14; TEMP 36.6; O2SAT 97
--- NOTE | 2021-06-12 09:24 | DCPLANNER ---
golf manager had message to schedule a follow up appointment for patient with [facility]. golf manager called [facility], spoke with Terrance, gave clinic patients information. A follow up appointment is scheduled for Thursday, June 17, 2021 at 3:[address] Whatley. Clinic will call patient with appointment information.
--- NOTE | 2021-06-21 14:27 | DCPLANNER ---
Patient had a follow up appointment scheduled for 06.17.21 with [facility] - patient did attend appointment.
== END 2021-06-11 06:49 | disposition home or self-care (01) ==
PROVIDERS: Emergency Provider Emergency Medicine
DX: O03.9 Complete or unspecified spontaneous abortion without complication (principal); O99.332 Smoking (tobacco) complicating pregnancy, second trimester; F17.210 Nicotine dependence, cigarettes, uncomplicated; Z3A.20 20 weeks gestation of pregnancy; O30.002 Twin pregnancy, unspecified number of placenta and unspecified number of amniotic sacs, second trimester
CPT/HCPCS: 76856; 80053; 85025; 96374; 96375; 99284; J1170; J2405

== ENCOUNTER → 2021-06-25 15:46 | Outpatient (BNVA) | payer BC, MEDICAID, SELFPAY | PROVIDERS: Visit Provider Obstetrics & Gynecology | DX: O03.4 Incomplete spontaneous abortion without complication (principal) | CPT/HCPCS: 76857 ==

== ENCOUNTER → 2021-07-18 08:43 | Outpatient (BNVA) | payer BC, MEDICAID, SELFPAY | PROVIDERS: Visit Provider Obstetrics & Gynecology | DX: Z30.2 Encounter for sterilization (principal); Z20.822 Contact with and (suspected) exposure to COVID-19 | CPT/HCPCS: 87635 ==

== ENCOUNTER 2021-07-23 07:44 | Day surgery (SDC) | payer BC, MEDICAID, SELFPAY ==
[2021-07-22 11:00] VITALS: BMI 21.1
[2021-07-23] VITALS (7 sets, daily range): BP systolic 103–144; BP diastolic 63–77; PULSE 70–98; RESP 14–21; TEMP 36.2–37; O2SAT 92–100
[2021-07-23 08:10] LABS: OR HCG Qualitative Urine Negative (Negative)
--- NOTE | 2021-07-23 08:18 | ANES.PREANE2 ---
Pre-Anesthetic Assessment Pre-Anesthetic Assessment: Height/Weight: Height 1.7 m Weight 61.235 kg Temp Pulse Resp BP Pulse Ox 97.1 F L 90 18 111/75 99 07/23/21 07:58 07/23/21 07:58 07/23/21 07:58 07/23/21 07:58 07/23/21 07:58 Preop Diagnosis: AUB, dysmenorrhea Proposed Procedure: Operation Date: 07/23/21 09:10 Proposed Procedures p Hysteroscopy w/ Myosure [id number](Not Applicable) - Scarlet Whatley MD s Dilation And Curettage (D&C)(Not Applicable) - Scarlet Whatley MD Was Beta Natalio taken within 24 hours: N/A Was Clonidine taken within 24 hours: N/A Last intake: Intake Last Liquid Date 07/22/21 Last Liquid Time 21:00 Last Solid Date 07/22/21 Last Solid Time 21:00 Social: Social History: Tobacco and No alcohol Exam: Pre-Anes Outpt Exam: alert, oriented x 3, clear to auscultation bilaterally and regular rate & rhythm Airway: Submandibular: WNL Cervical ROM: WNL MP: 2 Dentition: Full History/ROS: No significant history except as noted Neuropsych: Neuropsych: Anxiety and Depression Anesthetic Plan: ASA status: 2 Anesthesia: General Risk of > 500 ml blood loss (7ml/kg in children): No PFSH Anesthesia PFSH: Medical History No pertinent past medical history neghx: htn,dm,thyroid,dvt/pe PCP: None Surgical History Hx of appendectomy (~2018) Family History Father Colon cancer dx age 51 Hypertension Denies family history of Ovarian cancer Diabetes Heart disease Hypercholesteremia Breast cancer Uterine cancer Thyroid disease Stroke Social History Smoking and tobacco status: current every day smoker Female Reproductive History: Date of last menstrual period: 01/23/21 Data Anesthesia Other Labs: Laboratory Results - last 48 hr 07/23/21 08:08 Urine HCG, Qual Negative Cardiac Studies: No Data to Display
[2021-07-23] MEDS: sodium chloride 0.9% 1,000 ML 30 ML IV (08:22)
[2021-07-23] MEDS: ketorolac 30 mg/mL INJ IVP (08:24)
[2021-07-23 08:46] LABS: Basophils % 0.7 %; Eosinophils # 0.2 10^3/uL (0.0-0.8); Eosinophils % 5.6 %; Hematocrit 42.9 % (37.0-47.0); Hemoglobin 13.9 g/dL (11.5-15.3); Lymphocytes # 1.7 10^3/uL (0.8-4.8); Lymphocytes % 41.6 %; Mean Corpuscular HGB Conc 32.4 g/dL (30.0-36.0); Mean Corpuscular Hemoglobin 29.6 pg (28.0-34.0); Mean Corpuscular Volume 91.3 fl (81-99); Mean Platelet Volume 12.2 fL (7.4-10.4); Monocytes # 0.3 10^3/uL (0.2-0.9); Neutrophils # 1.81 10^3/uL (1.8-7.7); Neutrophils % 43.9 %; Nucleated Red Blood Cells % 0 %; Platelet Count 208 10^3/cmm (130-400); Red Cell Distribution Width 14.3 % (12.1-15.1); White Blood Count 4.1 10^3/uL (4.0-10.0)
--- NOTE | 2021-07-23 09:08 | W.PM.OPSUD ---
Surgery/Procedure H&P Update DATE OF PROCEDURE: July 23, 2021 DATE H&P PERFORMED: 07/18/21 H&P UPDATE INFORMATION: I have reviewed H&P completed within last 30 days, I have examined patient prior to procedure and No changes to prior documentation PREOP DIAGNOSIS: AUB, dysmenorrhea PLANNED PROCEDURE: Operation Date: 07/23/21 09:10 Proposed Procedures p Hysteroscopy w/ Myosure [id number](Not Applicable) - Scarlet Whatley MD s Dilation And Curettage (D&C)(Not Applicable) - Scarlet Whatley MD
--- NOTE | 2021-07-23 09:45 | PM.OP ---
Operative Report Date of procedure: July 23, 2021 Pre-op Diagnosis: AUB, dysmenorrhea Post-op diagnosis: same Post-op Findings: 7 week sized uterus. Some abnormal tissue on the posterior Procedure Done: hysteroscopy, dilation and curettage with myosure Specimens removed/disposition: endometrial curettings to pathology Anesthesia: General Estimated blood loss (mL): 10 IV fluids (mL): 500 Urine output (mL): 300 Complications: none Findings: 7 week sized uterus with some excess posterior tissue in the endometrium 1075 fluid deficit Condition: stable Disposition: PACU Brief History: The patient had spontaneous miscarriage of twins. She continued to bleed for months afterward. She is worried that something is wrong, in spite of having a normal ultrasound Procedure: The patient was taken to the operating room where monitored anesthesia was administered and to be adequate. She was prepped and draped in the normal sterile fashion in the dorsal lithotomy position in [facility]. A weighted speculum was placed into the vagina and the anterior lip of the cervix grasped with a single-tooth tenaculum. The urinary bladder was drained of 300 mL. The uterus was sounded to 7 cm. The cervix was dilated to 15 [place]. The hysteroscope was advanced into the endometrial cavity. There was some extra tissue on the posterior visualized. The MyoSure device was activated and the tissue was removed. Pictures were taken pre and post procedure. All instruments were removed. The patient tolerated the procedure well. Sponge lap and needle counts were correct x3. She was taken to the recovery room in stable condition.
--- NOTE | 2021-07-23 09:51 | P.DS_ITS ---
Discharge Providers Date of Discharge: July 23, 2021 Attending Provider at Discharge: Scarlet Whatley MD Diagnoses at Discharge Discharge Diagnosis (1) Abnormal uterine bleeding (AUB): Status: Acute (2) Postoperative state: Status: Acute Reason for Visit Reason for Visit: [facility] Hospital Course Hospital Course The patient was admitted for surgery. She did well postoperatively and was ready for discharge Discharge Data Data Completed and Pending: Pending at discharge Category Date Time Status ES surgery / GI i mages Routine Exams 07/23/21 09:28 Ordered Basic Metabolic P rachel Routine Lab 07/23/21 08:10 Received Urine Culture Rou saúl Lab 07/23/21 07:56 Received Labs from last 24 hours 07/23/21 07/23/21 07/23/21 08:10 08:10 08:08 WBC 4.1 RBC 4.70 Hgb 13.9 Hct 42.9 MCV 91.3 MCH 29.6 MCHC 32.4 RDW 14.3 Plt Count 208 MPV 12.2 H Neut % (Auto) 43.9 Lymph % (Auto) 41.6 [place] % (Auto) 8.0 Eos % (Auto) 5.6 Baso % (Auto) 0.7 Neut # (Auto) 1.81 Lymph # (Auto) 1.7 [place] # (Auto) 0.3 Eos # (Auto) 0.2 Baso # (Auto) 0.0 Nucleated RBC % (a uto) 0 Nucleated RBCs # 0.0 Sodium Pending Potassium Pending Chloride Pending Carbon Dioxide Pending Anion Gap Pending BUN Pending Creatinine Pending GFR Calculation Pending Glucose Pending Calculated Osmolal ity Pending Calcium Pending Urine HCG, Qual Negative Vitals: Last Vital Signs Temp 97.1 F L 07/23/21 07:58 Pulse 90 07/23/21 07:58 Resp 18 07/23/21 07:58 BP 111/75 07/23/21 07:58 Pulse Ox 99 07/23/21 07:58 Discharge Plan Discharge Patient Disposition: Home Condition: Stable Prescriptions: No Action No Known Home Medications RF: 0 Discharge Orders: Discharge Order (Routine); Ordered 07/23/21 Ordered By: Scarlet Whatley Discharge Attestations Time Spent in Discharge Care*: less than 30 min Quality Metrics Clinical Quality Measures During this hospital stay, did patient experience: None Coding Level of Care Code Acute Chg FW DC note Diagnoses Abnormal uterine bleeding (AUB) N93.9 Postoperative state Z98.890
[2021-07-23 11:13] LABS: Anion Gap 16.8 (5-19); Blood Urea Nitrogen 13 mg/dL (6-20); Calcium 9.4 mg/dL (8.5-10.5); Carbon Dioxide 24 mmol/L (22-29); Chloride 100 mmol/L (98-107); Glomerular Filtration Rate 121.8 mL/min (90-130); Glucose 84 mg/dL (65-115); Osmolality Calculated 283 mOsm/kg (285-295); Potassium 3.8 mmol/L (3.5-5.1); Sodium 137 mmol/L (136-145)
--- NOTE | 2021-07-23 14:19 | ANE.PACU2 ---
Inpatient post-anesthesia follow up: Airway intact: Yes Vital signs: Temperature 98.1 F Pulse Rate 70 Respiratory Rate 18 Blood Pressure 112/75 Pulse Oximetry 100 Oxygen Delivery Me thod Room Air Oxygen Flow Rate Fraction of Inspir ed Oxygen Hydration adequate: Yes Nausea and vomiting: No Pain level: 2 Mental status: Baseline
== END 2021-07-23 10:55 | disposition home or self-care (01) ==
PROVIDERS: Visit Provider Obstetrics & Gynecology
PROC: 0UDB8ZZ Extraction of Endometrium, Via Natural or Artificial Opening Endoscopic (ICD-10-PCS; CPT 58558; principal; 2021-07-23 09:00)
PROC: (CPT 58120; 2021-07-23 09:00)
DX: N93.9 Abnormal uterine and vaginal bleeding, unspecified (principal); N94.6 Dysmenorrhea, unspecified; F41.9 Anxiety disorder, unspecified; F32.9 Major depressive disorder, single episode, unspecified; F17.210 Nicotine dependence, cigarettes, uncomplicated
CPT/HCPCS: 58558; 36415; 80048; 81025; 84703; 85025; 87086; 88305; 96365; J0690; J1100; J1885; J2250; J2405; J2704; J2710; J3010; J3490; J7030

== ENCOUNTER 2021-09-10 11:27 | Emergency (ER) | payer BC, MEDICAID, SELFPAY ==
[2021-09-10 11:34] VITALS: BP 101/71; PULSE 130; RESP 15; TEMP 39; O2SAT 97; BMI 23.1
--- NOTE | 2021-09-10 11:50 | CT_ITS ---
WS: [id number] CT ABDOMEN AND PELVIS WITH CONTRAST HISTORY: Abdominal pain. Evaluate for pathology. TECHNIQUE: Imaging performed of the abdomen and pelvis with IV contrast. Single phase imaging of the abdomen. Coronal and sagittal reformats are submitted. All CT scans at [facility] use at [address] one of these dose optimization techniques: automated exposure control; mA and/or kV adjustment per patient size (includes targeted exams where dose is matched to clinical indication); or iterative re construction. IV CONTRAST: Omnipaque 300; 95 mL IV. Oral contrast: No DLP: 1040.43 mGy.cm COMPARISON: None available. Lower thorax: Dense consolidation LEFT lower lobe most likely pneumonia. Heart is normal size. No hia manohar hernia. Liver/biliary system: Normal size liver with hepatic steatosis along the falciform ligament. Gallbladder: Normal. No gallstones or wall thickening. No pericholecystic fluid. Pancreas: Normal size pancreas and pancreatic duct. No adjacent inflammation. Spleen: Normal size spleen. No mass or infarct. Adrenal glands: Normal. Right kidney: Normal. Left kidney: Normal. Aorta: Normal. Lymphadenopathy: None. Free fluid: Moderate amount of free fluid in the cul-de-sac with mildly elevated Hounsfield units. Fl uid is slightly greater to the RIGHT of midline. GI tract: Prior appendectomy. No GI tract obstruction. Abdominal wall: Unremarkable abdominal wall. No hernia. Pelvis: Mildly complex free fluid in the pelvis is slightly more than physiologic. There is an increa sed soft tissue thickening extending into the adnexa. Peripherally enhancing and partially collapsed RIGHT corpus luteum or ovarian cyst. Residual cyst measures 2.5 x 1.2 cm. There is mild thickening of the endometrium. Bones: Unremarkable. CT/CT abdomen pelvis w con* [id number] IMPRESSION: 1. LEFT lower lobe incompletely visualized lobular opacifications. Most likely pneumonia. 2. Moderate amount of free fluid in the cul-de-sac is probably from a ruptured RIGHT ovarian cyst. Please correlate with negative beta hCG. If there is a pos itive test ectopic may appear similar. 3. Prior appendectomy.
--- NOTE | 2021-09-10 11:51 | W.ED.GENADLT ---
HPI - General Adult General: Chief complaint: Nausea/Vomiting/Diarrhea Stated complaint: FEVER/THROWING UP Time Seen by Provider: 09/10/21 11:47 History of Present Illness: HPI narrative: Patient is a 26-year-old female with a history of prior UTI presenting to the emergency room with complaints of generalized abdominal pain back pain, nausea/vomiting and fever x 3 days. Patient says that she has had significant nausea vomiting for the last 3 days and has not had any p.o. intake. Patient reports diffuse abdominal pain worse in the lower quadrants in the back bilaterally. Has no urinary symptoms today. Denies any history congenital, prior abdominal surgeries. Patient also reports fever chills at home with generalized muscle aches and malaise. Denies melena or hematochezia. Onset: 3 days ago Duration:3 days Location:home Severity:moderate/severe Review of Systems Narrative: Constitutional: +fever, +chills. +generalized weakness, malaise HEENT: No vision changes CV: No chest pain, no palpitations PULM: no cough, no dyspnea. GI: +abdominal pain, +N/+V/-D. +b/l flank pain : No dysuria MSKEL: No muscle pain SKIN: No new rashes, no lesions. NEURO: No headache, no focal weakness. HEME: No visible bruises PSYCH: Normal mood PFSH ED PFSH: Medical History No pertinent past medical history neghx: htn,dm,thyroid,dvt/pe PCP: None Surgical History Hx of appendectomy (~2018) Family History Father Colon cancer dx age 51 Hypertension Denies family history of Ovarian cancer Diabetes Heart disease Hypercholesteremia Breast cancer Uterine cancer Thyroid disease Stroke Social History Smoking and tobacco status: current every day smoker Female Reproductive History: Date of last menstrual period: 01/23/21 Physical Exam Narrative: EXAM NARRATIVE: Head: Atraumatic Eyes: PERRL, conjunctiva without injection ENT: Mucous membrane dry NECK: Supple, ROM intact LUNGS: LCTAB, no crackles/rhonchi CV: Sinus tachycardia ABDOMEN: Soft, +diffuse tenderness to palpation. NO guarding rebound, guarding, rigidity. +b/l CVA tenderness to percussion. Neg Hernandez/Neg McBurney's point tenderness, no suprabupic tenderness to palpation. EXTREMITY: Normal ROM SKIN: No rash or erythema NEURO: Awake and alert, no focal motor deficits PSYCH: Normal mood and affect Course Vital Signs: Vital signs: Vital Signs Temperature 97.8 F 09/10/21 14:57 Pulse Rate 96 09/10/21 14:42 Respiratory Rate 16 09/10/21 14:42 Blood Pressure 109/72 09/10/21 14:42 Pulse Oximetry 96 09/10/21 14:00 MDM - General Adult MDM Narrative: Medical decision making narrative: Patient is a 26-year-old female who presents emergency room with vomiting, fever, and diffuse abdominal pain. Lab work showed white count of 3.5, platelet of 105. CT abd+pelvis showed right pelvic fluid fluid. Patient's negative. Suspect that this is secondary to cyst rupture. Present time, patient is pain-free. Patient is Covid positive today. Suspected dehydration. Patient received 3 L of fluids and Tylenol in the symptomatic improved. Patient received Zofran however tolerated p.o. Rx tylenol PRN abd pain, maalox/pepcid PRN dyspepsia, and zofran PRN nausea/vomiting No suspicion for other acute intra-abdominal pathology including SBO, biliary pathology, appendicitis, diverticulitis, or other emergent condition requiring surgery. Given pulseox and instruction on proper use. XR is consistent with covid PNA. Disposition: Discharge. Patient counseled regarding diagnostic impression, treatment plan. Patient given ED strict return precautions to return for continuation, worsening, or development of new symptoms. Instructed to f/u w/ PCP regarding symptoms today. Patient verbalized understanding. Lab Data: Labs: Lab Results 09/10/21 09/10/21 09/10/21 11:50 11:50 11:50 WBC 3.2 10^3/uL L 10^ 3/uL (4.0-10.0) RBC 4.70 10^6/uL 10^6 /uL (4.1-5.3) Hgb 14.0 g/dL g/dL (11.5-15.3) Hct 41.2 % % (37.0-47.0) MCV 87.7 fl fl (81-99) MCH 29.8 pg pg (28.0-34.0) MCHC 34.0 g/dL g/dL (30.0-36.0) RDW 14.9 % % (12.1-15.1) Plt Count 105 10^3/cmm L 10 ^3/cmm (130-400) MPV 12.5 fL H fL (7.4-10.4) Neut % (Auto) 71.4 % % Lymph % (Auto) 24.5 % % Glascock % (Auto) 4.1 % % Eos % (Auto) 0.0 % % Baso % (Auto) 0.0 % % Neut # (Auto) 2.28 10^3/uL 10^3 /uL (1.8-7.7) Lymph # (Auto) 0.8 10^3/uL 10^3/ uL (0.8-4.8) Glascock # (Auto) 0.1 10^3/uL L 10^ 3/uL (0.2-0.9) Eos # (Auto) 0.0 10^3/uL 10^3/ uL (0.0-0.8) Baso # (Auto) 0.0 10^3/uL 10^3/ uL (0.0-0.1) Nucleated RBC % (a uto) 0 % % Nucleated RBCs # 0.0 /100WBC /100W BC PT 12.60 SECONDS SEC ONDS (12.1-14.9) INR 0.92 (0.8-1.2) APTT 41.0 SECONDS H SE CONDS (23.9-36.7) Sodium 136 mmol/L mmol/L (136-145) Potassium 4.4 mmol/L mmol/L (3.5-5.1) Chloride 99 mmol/L mmol/L (98-107) Carbon Dioxide 23 mmol/L mmol/L (22-29) Anion Gap 18.4 (5-19) BUN 7 mg/dL mg/dL (6-20) Creatinine 0.7 mg/dL mg/dL (0.5-0.9) GFR Calculation 102.0 mL/min mL/m in (90-130) Glucose 102 mg/dL mg/dL (65-115) Calculated Osmolal ity 280 mOsm/kg L mOs m/kg (285-295) Lactic Acid Calcium 8.8 mg/dL mg/dL (8.5-10.5) Total Bilirubin 0.2 mg/dL mg/dL (0.15-1.2) AST 36 U/L H U/L (0-32) ALT 34 U/L H U/L (0-33) Alkaline Phosphata se 66 IU/L IU/L (35-105) Total Protein 7.1 g/dL g/dL (6.6-8.7) Albumin 4.2 g/dL g/dL (3.5-5.2) Globulin 2.9 g/dL g/dL (1.3-4.6) Lipase 26 U/L U/L (13-60) Ser , Kaleb i-Qnt Urine Color Urine Appearance Urine pH Ur Specific Gravit y Urine Protein Urine Glucose (UA) Urine Ketones Urine Blood Urine Nitrate Urine Bilirubin Urine Urobilinogen Ur Leukocyte Farida ase Urine RBC Urine WBC Ur Squamous Epith Cells Amorphous Sediment Urine Bacteria Influenza Type A A g Influenza Type B A g SARS-CoV-2 Ag (Rap id) 09/10/21 09/10/21 09/10/21 11:50 11:50 12:47 WBC RBC Hgb Hct MCV MCH MCHC RDW Plt Count MPV Neut % (Auto) Lymph % (Auto) Glascock % (Auto) Eos % (Auto) Baso % (Auto) Neut # (Auto) Lymph # (Auto) Glascock # (Auto) Eos # (Auto) Baso # (Auto) Nucleated RBC % (a uto) Nucleated RBCs # PT INR APTT Sodium Potassium Chloride Carbon Dioxide Anion Gap BUN Creatinine GFR Calculation Glucose Calculated Osmolal ity Lactic Acid 0.5 mmol/L mmol/L (0.5-2.2) Calcium Total Bilirubin AST ALT Alkaline Phosphata se Total Protein Albumin Globulin Lipase Ser , Kaleb i-Qnt 0.50 mIU/mL mIU/m L Urine Color Urine Appearance Urine pH Ur Specific Gravit y Urine Protein Urine Glucose (UA) Urine Ketones Urine Blood Urine Nitrate Urine Bilirubin Urine Urobilinogen Ur Leukocyte Farida ase Urine RBC Urine WBC Ur Squamous Epith Cells Amorphous Sediment Urine Bacteria Influenza Type A A g Negative (Negative) Influenza Type B A g Negative (Negative) SARS-CoV-2 Ag (Rap id) 09/10/21 09/10/21 12:47 13:50 WBC RBC Hgb Hct MCV MCH MCHC RDW Plt Count MPV Neut % (Auto) Lymph % (Auto) Glascock % (Auto) Eos % (Auto) Baso % (Auto) Neut # (Auto) Lymph # (Auto) Glascock # (Auto) Eos # (Auto) Baso # (Auto) Nucleated RBC % (a uto) Nucleated RBCs # PT INR APTT Sodium Potassium Chloride Carbon Dioxide Anion Gap BUN Creatinine GFR Calculation Glucose Calculated Osmolal ity Lactic Acid Calcium Total Bilirubin AST ALT Alkaline Phosphata se Total Protein Albumin Globulin Lipase Ser , Kaleb i-Qnt Urine Color Yellow (Yellow) Urine Appearance Clear (CLEAR) Urine pH 5 (5-7) Ur Specific Gravit y 1.010 (1.005-1.030) Urine Protein Trace (Negative) Urine Glucose (UA) Norm (Normal) Urine Ketones 1+ H (Negative) Urine Blood 2+ H (Negative) Urine Nitrate Negative (Negative) Urine Bilirubin Neg (Negative) Urine Urobilinogen Norm mg/dL mg/dL (Negative) Ur Leukocyte Farida ase Negative (Negative) Urine RBC 25-40 /hpf H /hpf (0-2) Urine WBC 0-4 /hpf H /hpf (0-5) Ur Squamous Epith Cells 0-4 /hpf H /hpf (0-5) Amorphous Sediment Not Reportable Urine Bacteria Trace /hpf /hpf (NONE) Influenza Type A A g Influenza Type B A g SARS-CoV-2 Ag (Rap id) Positive H (Negative) Imaging Data^: Other Imaging: Radiologist's impression: [address] [id number] Scan ReportSigned Patient: Yaneli Steel #: [id number]: 1995Acct#:[id number]/Sex: 26 / FADM Date: 09/10/21Loc: ERRoom/Bed:Attending Dr: Ordering Provider/Ordering MD: Lucius New MD Date of Service: 09/10/21 Procedure(s): CT abdomen pelvis w con* [id number] Accession Number(s): [id number] Report Number: [id number] WS: [id number] CT ABDOMEN AND PELVIS WITH CONTRAST HISTORY: Abdominal pain. Evaluate for pathology. TECHNIQUE: Imaging performed of the abdomen and pelvis with IV contrast. Single phase imaging of the abdomen. Coronal and sagittal reformats are submitted. All CT scans at [facility] use at least one of these dose optimization techniques: automated exposure control; mA and/or kV adjustment per patient size (includes targeted exams where dose is matched to clinical indication); or iterative reconstruction. IV CONTRAST: Omnipaque 300; 95 mL IV. Oral contrast: No DLP: 1040.43 mGy.cm COMPARISON: None available. Lower thorax: Dense consolidation LEFT lower lobe most likely pneumonia. Heart is normal size. No hiatal hernia. Liver/biliary system: Normal size liver with hepatic steatosis along the falciform ligament. Gallbladder: Normal. No gallstones or wall thickening. No pericholecystic fluid. Pancreas: Normal size pancreas and pancreatic duct. No adjacent inflammation. Spleen: Normal size spleen. No mass or infarct. Adrenal glands: Normal. Right kidney: Normal. Left kidney: Normal. Aorta: Normal. Lymphadenopathy: None. Free fluid: Moderate amount of free fluid in the cul-de-sac with mildly elevated Hounsfield units. Fluid is slightly greater to the RIGHT of midline. GI tract: Prior appendectomy. No GI tract obstruction. Abdominal wall: Unremarkable abdominal wall. No hernia. Pelvis: Mildly complex free fluid in the pelvis is slightly more than physiologic. There is an increased soft tissue thickening extending into the adnexa. Peripherally enhancing and partially collapsed RIGHT corpus luteum or ovarian cyst. Residual cyst measures 2.5 x 1.2 cm. There is mild thickening of the endometrium. Bones: Unremarkable. CT/CT abdomen pelvis w con* [id number] IMPRESSION: 1. LEFT lower lobe incompletely visualized lobular opacifications. Most likely pneumonia. 2. Moderate amount of free fluid in the cul-de-sac is probably from a ruptured RIGHT ovarian cyst. Please correlate with negative beta hCG. If there is a positive test ectopic may appear similar. 3. Prior appendectomy. Dictated By:Maria Antonia Badillo DOSigned By:Maria Antonia Badillo DOSigned Date/Time:09/10/21 1409DD/ 1332 [facility] [place], [place] [address]XOzn ReportSigned Patient: Yaneli Steel #: [id number]: 1995Acct#:[id number]/Sex: 26 / FADM Date: 09/10/21Loc: ERRoom/Bed:Attending Dr: Ordering Provider/Ordering MD: Lucius New MD Date of Service: 09/10/21 Procedure(s): XR chest 1V portable [id number] Accession Number(s): [id number] Report Number: [id number] WS: [id number] Exam: XR chest 1V portable [id number] Date/Time of Exam: 09/10/2021 2:22 PM Reason For Exam: eval pneumonia Comparison 01/07/2020. Patchy groundglass infiltrates noted in the mid and lower left lung as well as the right upper lobe suggesting pneumonia. The lungs are fully expanded. Heart size is normal. The mediastinum is not widened. Regional bony elements are intact. XR/XR chest 1V portable [id number] IMPRESSION: 1. Bilateral groundglass infiltrates suggesting pneumonia. The pattern is nonspecific but the appearance can be seen with Covid pneumonia. Dictated By:Hopkinsigned By:Param Amin Date/Time:09/10/21 1432DD/ 1430 Discharge Plan Discharge Patient Disposition: Home Clinical Impression: Fever, Tachycardia, Abdominal pain, Nausea & vomiting, COVID Condition: Stable Prescriptions: New Pepcid 20 mg tablet 20 mg PO BID PRN (Reason: abdominal pain) 10 Days Qty: 20 RF: 0 Discontinued acetaminophen [Tylenol Ex Str Rapid Release] 500 mg Tablet 1,000 mg PO Q4H PRN (Reason: Pain) RF: 0 Discharge Orders: Discharge ED (Routine); Ordered 09/17/21 Ordered By: Lucius New Discharge Diet: Advance as tolerated Discharge Activity: Resume usual activity Patient Instructions: Abdominal Pain (ED), COVID-19 (Coronavirus Disease 2019) (ED) Activity Restrictions/Additional Instructions: Come back to the emergency room if your symptoms worsen, have any shortness of breath, fever/chills, dehydration, inability tolerate p.o., any difficulty breathing, or any new or concerning complaints. Please return the emergency room if your pulse ox reads less than 88%. Coding Level of Care Code ED Counterintelligence Specialist for Hans Sweeney
[2021-09-10 12:03] LABS: Hematocrit 41.2 % (37.0-47.0); Lymphocytes # 0.8 10^3/uL (0.8-4.8); Lymphocytes % 24.5 %; Mean Corpuscular Hemoglobin 29.8 pg (28.0-34.0); Mean Corpuscular Volume 87.7 fl (81-99); Mean Platelet Volume 12.5 fL (7.4-10.4); Monocytes # 0.1 10^3/uL (0.2-0.9); Monocytes % 4.1 %; Neutrophils # 2.28 10^3/uL (1.8-7.7); Neutrophils % 71.4 %; Nucleated Red Blood Cells % 0 %; Platelet Count 105 10^3/cmm (130-400); Red Cell Distribution Width 14.9 % (12.1-15.1); White Blood Count 3.2 10^3/uL (4.0-10.0)
[2021-09-10 12:17] LABS: INR 0.92 (0.8-1.2)
[2021-09-10 12:21] LABS: Alanine Aminotransferase 34 U/L (0-33); Albumin Level 4.2 g/dL (3.5-5.2); Alkaline Phosphatase 66 IU/L (35-105); Blood Urea Nitrogen 7 mg/dL (6-20); Calcium 8.8 mg/dL (8.5-10.5); Carbon Dioxide 23 mmol/L (22-29); Chloride 99 mmol/L (98-107); Creatinine Clr Calc Pharmacy 119.3279; Globulin 2.9 g/dL (1.3-4.6); Glucose 102 mg/dL (65-115); Lactic Sepsis W/Reflex 0.5 mmol/L (0.5-2.2); Lipase 26 U/L (13-60); Osmolality Calculated 280 mOsm/kg (285-295); Sodium 136 mmol/L (136-145); Total Bilirubin 0.2 mg/dL (0.15-1.2); Total Protein 7.1 g/dL (6.6-8.7)
[2021-09-10 12:24] LABS: Anion Gap 18.4 (5-19); Aspartate Amino Transferase 36 U/L (0-32); Potassium 4.4 mmol/L (3.5-5.1)
[2021-09-10] MEDS: acetaminophen 500 mg Tablet 1000 MG PO (12:49)
[2021-09-10] MEDS: ondansetron 2 mg/ML SDV 2 mL 4 MG IVP (12:49)
[2021-09-10 13:20] LABS: Influenza A by IFA Negative (Negative); Influenza B by IFA Negative (Negative); SARS Covid-2 Antigen Positive (Negative)
[2021-09-10] MEDS: iohexol 350 mg/mL 100 mL Btl IV (13:30)
[2021-09-10 13:49] LABS: LAB Peripheral Smear Sent for Review
[2021-09-10 13:50] VITALS: O2SAT 96
[2021-09-10 14:00] VITALS: O2SAT 96
--- NOTE | 2021-09-10 14:22 | XR_ITS ---
WS: [id number] Exam: XR chest 1V portable [id number] Date/Time of Exam: 09/10/2021 2:22 PM Reason For Exam: eval pneumonia Comparison 01/07/2020. Patchy groundglass infiltrates noted in the mid and lower left lung as well as the right upper lobe s uggesting pneumonia. The lungs are fully expanded. Heart size is normal. The mediastinum is not widen ed. Regional bony elements are intact. XR/XR chest 1V portable [id number] IMPRESSION: 1. Bilateral groundglass infiltrates suggesting pneumonia. The pattern is nonsp ecific but the appearance can be seen with Covid pneumonia.
[2021-09-10 14:33] LABS: Add Urine Culture? No; Add Urine Microscopic? YES; Bacteria Urine TRACE /hpf; Bilirubin Urine Neg (Negative); Blood Urine 2+ (Negative); Glucose Urine UA Norm (Normal); Ketones Urine 1+ (Negative); Leukocyte Esterase Urine Negative (Negative); Nitrate Urine Negative (Negative); Protein Urine Trace (Negative); RBC Urine 25-40 /hpf (0-2); Squamous Epithelial Cell Urine 0-4 /hpf (0-5); Urine Appearance Clear (CLEAR); Urine Color Yellow (Yellow); Urobilinogen Urine Norm (Negative); WBC Urine 0-4 /hpf (0-5); pH Urine 5 (5-7)
[2021-09-10 14:42] VITALS: BP 109/72; PULSE 96; RESP 16
[2021-09-10 14:57] VITALS: TEMP 36.6
[2021-09-10] MEDS: piperacillin-tazobactam 4.5 GM in sodium chloride 0.9% (plus) 50 ML IV (15:52)
== END 2021-09-10 16:39 | disposition home or self-care (01) ==
PROVIDERS: Emergency Provider Emergency Medicine
DX: U07.1 COVID-19 (principal); R00.0 Tachycardia, unspecified; F17.210 Nicotine dependence, cigarettes, uncomplicated
CPT/HCPCS: 71045; 74177; 80053; 80500; 81001; 83605; 83690; 84702; 85025; 85610; 85730; 87040; 87086; 87426; 87804; 96365; 96366; 96375; 99284; J2405; J2543; Q9967

== ENCOUNTER 2022-01-31 19:13 | Emergency (ER) | payer BC, MEDICAID, SELFPAY ==
[2022-01-31 19:18] VITALS: BP 121/84; PULSE 112; RESP 16; TEMP 37.2; O2SAT 98; BMI 23.6
--- NOTE | 2022-01-31 19:40 | ED_ITS ---
HPI - General Adult General: Chief complaint: Animal Bite Stated complaint: Dog Bite Time Seen by Provider: 01/31/22 19:16 History of Present Illness: Patient is a 26-year-old female with unknown tetanus status presenting to the emergency room after she was bit by pimple in the right buttock. Patient denies any other injury. Patient has 3 bite suarez. Patient denies any significant bleeding. No history of immunosuppression including asplenia. Onset: 1 hr ago Duration:once Location:streets Severity: mild/moderate Associated symptoms: Deny chest pain, dyspnea, nausea, palpitations or vomiting Review of Systems Const: Denies: fever(s) or chills Eyes: Denies: change in vision ENMT: Denies: mouth pain Card: Denies: chest pain or palpitations Resp: Denies: dyspnea or non-productive cough GI: Denies: abdominal pain, nausea, vomiting or diarrhea : Denies: dysuria Musc: Denies: extremity pain Skin/Breast: Reports: new lesions (+3 dog bites on the R buttock) Neuro: Denies: weakness in extremities Psych: Reports: other (Normal mood) Mariano/Lymph: Denies: easy bruising PFSH ED PFSH: Medical History No pertinent past medical history neghx: htn,dm,thyroid,dvt/pe PCP: None Surgical History Hx of appendectomy (~2018) Family History Father Colon cancer dx age 51 Hypertension Denies family history of Ovarian cancer Diabetes Heart disease Hypercholesteremia Breast cancer Uterine cancer Thyroid disease Stroke Social History Smoking and tobacco status: current every day smoker Female Reproductive History: Date of last menstrual period: 01/29/22 Physical Exam Const: COMMON NORMALS: alert HENMT: COMMON NORMALS: atraumatic HEAD & SCALP: atraumatic MOUTH: moist mucous membranes not abnormal Eye: COMMON NORMALS: EOMs intact bilaterally and conjunctivae normal CONJUNCTIVA: Yes conjunctivae normal Neck/C-Spine: COMMON NORMALS: full ROM and supple Resp: COMMON NORMALS: normal respiratory effort and clear to auscultation bilaterally AUSCULTATION: clear to auscultation bilaterally Cardio: COMMON NORMALS: regular rate RATE: regular rate GI: COMMON NORMALS: Soft to palpation and non-tender PALPATION: Yes Soft to palpation : OTHER: + 3 bite suarez on the right glutes without any surrounding erythema induration or fluctuance Extremity: COMMON NORMALS: full ROM Neuro: SENSORIUM/ORIENTATION: Yes alert MOTOR EXAM: No Abnormal motor strength present and Other motor observations present (no focal motor deficits) Psych: COMMON NORMALS: speech normal SPEECH: Yes normal speech MOOD & AFFECT: Yes euthymic mood Skin: OTHER: +3 bite suarez on the R glute Course Vital Signs: Vital signs: Vital Signs Temperature 98.9 F 01/31/22 19:18 Pulse Rate 94 01/31/22 20:25 Respiratory Rate 18 01/31/22 20:25 Blood Pressure 110/76 01/31/22 20:25 Pulse Oximetry 98 01/31/22 20:25 MDM - General Adult Medical Decision Making 26-year-old female presents emergency room after sustaining a dog bite to the right buttock. Patient has 3 bite wounds on physical exam. No signs of infection. Patient tells me that the dog is a neighbors dog and believes that the dog is up-to-date with rabies vaccines. However she will check with the local company flatbed truck driver of the dog. Patient received Tdap and Toradol. Wound was extensively irrigated with hydrogen peroxide followed by NS. Given the fact that it is in extremity wound involving animal bites, decision was made to not closed. Patient is aware that there may be cosmetic scars. Patient is given close follow-up with animal control to ensure that the animal has rabies. 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 Rx tylenol PRN pain Disposition: Discharge. Patient counseled regarding diagnostic impression, treatment plan. Patient given ED strict return precautions to return for continuation, worsening, or development of new symptoms. Instructed to f/u w/ PCP regarding symptoms today. Patient verbalized understanding. Patient is given strict return precaution for any signs of worsening pain, drainage, fever/chills, redness, or any new concerning complaints as this may indicate infection. Discharge Plan Discharge Patient Disposition: Home Clinical Impression: Dog bite Condition: Stable Prescriptions: New acetaminophen 500 mg tablet 500 mg PO Q6H PRN (Reason: pain) 5 Days Qty: 20 0RF amoxicillin-pot clavulanate 875-125 mg tablet 1 tab PO BID 7 Days Qty: 14 0RF Discharge Orders: Discharge ED (Routine); Ordered 01/31/22 Ordered By: Lucius New Discharge Diet: Advance as tolerated Discharge Activity: Increase activity as tolerated Activity Restrictions/Additional Instructions: Please ensure that the animal's rabies status verified. Come back to the emergency room for any new drainage, worsening pain, fever/chills, or any new c oncerning complaints. Stand Alone Forms: Work/School Release Coding Level of Care Code ED Residential Program Worker for Hans Fwd Exam Comprehensive
[2022-01-31] MEDS: ketorolac 30 mg/mL INJ IM (19:50)
[2022-01-31] MEDS: tetanus-dipt-pertussis 0.5 mL SDV IM (19:52)
[2022-01-31 20:00] VITALS: BP 129/75; PULSE 98; RESP 18; O2SAT 99
[2022-01-31 20:25] VITALS: BP 110/76; PULSE 94; RESP 18; O2SAT 98
--- NOTE | 2022-01-31 20:29 | PC.NURSE ---
1999 irrigated dog bit with sterile water and hydrogen peroxide mixture. Pt tolerated well. Pt has already made police report and states that neighbor reported dog up to date with rabies vaccine
--- NOTE | 2022-02-03 09:59 | DCPLANNER ---
marketing segment manager had message to check with animal control or Compensation Consulting Manager station to see if the animal was up to date on its rabies shots. marketing segment manager called the [facility] Compensation Consulting Manager station, was told that dog was up to date on its rabies shots. marketing segment manager called patient and let patient know that the animal was up to date on its shots.
== END 2022-01-31 20:25 | disposition home or self-care (01) ==
PROVIDERS: Emergency Provider Emergency Medicine
DX: S31.815A Open bite of right buttock, initial encounter (principal); W54.0XXA Bitten by dog, initial encounter; Z23 Encounter for immunization; F17.200 Nicotine dependence, unspecified, uncomplicated
CPT/HCPCS: 90471; 90715; 96372; 99283; J1885

== ENCOUNTER → 2022-08-04 09:34 | Outpatient (BNVA) | payer BC, MEDICAID, SELFPAY | PROVIDERS: Visit Provider Family Medicine | DX: S99.921A Unspecified injury of right foot, initial encounter (principal); X58.XXXA Exposure to other specified factors, initial encounter | CPT/HCPCS: 73630 ==

== ENCOUNTER → 2023-01-22 09:34 | Outpatient (BNVA) | payer BC, MEDICAID, SELFPAY | PROVIDERS: Visit Provider Nurse Practitioner Women's Health | DX: Z34.90 Encounter for supervision of normal pregnancy, unspecified, unspecified trimester (principal) | CPT/HCPCS: 81000 ==

== ENCOUNTER → 2023-01-29 07:49 | Outpatient (BNVA) | payer BC, MEDICAID, SELFPAY | PROVIDERS: Visit Provider Nurse Practitioner Women's Health | DX: Z36.87 Encounter for antenatal screening for uncertain dates (principal) | CPT/HCPCS: 76801; 81000 ==

== ENCOUNTER → 2023-02-19 09:00 | Outpatient (BNVA) | payer BC, MEDICAID, SELFPAY | PROVIDERS: Visit Provider Obstetrics & Gynecology | DX: O09.899 Supervision of other high risk pregnancies, unspecified trimester (principal) | CPT/HCPCS: 80307; 81000; 85027; 86592; 86762; 86803; 86850; 86900; 87086; 87340; 87806 ==

== ENCOUNTER → 2023-03-12 08:50 | Outpatient (BNVA) | payer BC, MEDICAID, SELFPAY | PROVIDERS: Visit Provider Obstetrics & Gynecology | DX: O09.899 Supervision of other high risk pregnancies, unspecified trimester (principal); Z3A.00 Weeks of gestation of pregnancy not specified | CPT/HCPCS: 81000 ==

== ENCOUNTER → 2023-04-09 13:43 | Outpatient (BNVA) | payer BC, MEDICAID, SELFPAY | PROVIDERS: Visit Provider Obstetrics & Gynecology | DX: O09.899 Supervision of other high risk pregnancies, unspecified trimester (principal); Z3A.00 Weeks of gestation of pregnancy not specified | CPT/HCPCS: 76805 ==

== ENCOUNTER → 2023-04-23 10:16 | Outpatient (BNVA) | payer BC, MEDICAID, SELFPAY | PROVIDERS: Visit Provider Obstetrics & Gynecology | DX: O09.899 Supervision of other high risk pregnancies, unspecified trimester (principal); Z3A.00 Weeks of gestation of pregnancy not specified | CPT/HCPCS: 81000 ==

== ENCOUNTER → 2023-05-07 08:56 | Outpatient (BNVA) | payer BC, MEDICAID, SELFPAY | PROVIDERS: Visit Provider Obstetrics & Gynecology | DX: O09.899 Supervision of other high risk pregnancies, unspecified trimester (principal); Z3A.00 Weeks of gestation of pregnancy not specified | CPT/HCPCS: 82950; 85025 ==

== ENCOUNTER 2023-05-28 17:19 | Outpatient (CLI) | payer BC, MEDICAID, SELFPAY ==
[2023-05-28] VITALS (13 sets, daily range): BP systolic 104–119; BP diastolic 55–64; PULSE 75–96; RESP 16–17; TEMP 36.2; BMI 26.9
[2023-05-28] MEDS: terbutaline 1 mg/mL INJ 0.25 MG SUBCUT (19:06)
[2023-05-28 19:11] LABS: Bilirubin Urine Neg (Negative); Blood Urine Neg (Negative); Glucose Urine UA Norm (Normal); Ketones Urine Negative (Negative); Leukocyte Esterase Urine Negative (Negative); Nitrate Urine Negative (Negative); Protein Urine Neg (Negative); Specific Gravity, Urine 1.015 (1.005-1.030); Sulfosalicylic Acid Urine Negative (Negative); Urine Appearance Cloudy (CLEAR); Urine Color Yellow (Yellow); Urobilinogen Urine Norm (Negative); pH Urine 8 (5-7)
[2023-05-28 19:12] LABS: Add Urine Culture? No; Amorphous Sediment Urine 3+ /hpf; Mucus Urine 1+ /hpf; RBC Urine 0-4 /hpf (0-2); Squamous Epithelial Cell Urine 0-4 /hpf (0-5); WBC Urine 0-4 /hpf (0-5)
[2023-05-28 19:28] LABS: Basophils % 0.4 %; Eosinophils # 0.2 10^3/uL (0.0-0.8); Eosinophils % 2.3 %; Hematocrit 36.2 % (36-47); Lymphocytes # 1.5 10^3/uL (0.8-4.8); Lymphocytes % 18.3 %; Mean Corpuscular HGB Conc 33.7 g/dL (30-55); Mean Corpuscular Hemoglobin 32.4 pg (27-33); Mean Corpuscular Volume 96.3 fl (85-98); Monocytes # 0.5 10^3/uL (0.2-0.9); Monocytes % 5.7 %; Neutrophils # 5.91 10^3/uL (1.8-7.7); Neutrophils % 72.6 %; Nucleated Red Blood Cells % 0 %; Platelet Count 173 10^3/cmm (157-399); Red Blood Count 3.76 10^6/uL (3.85-5.65); Red Cell Distribution Width 14.1 % (12.1-15.1); White Blood Count 8.14 10^3/uL (3.29-11.43)
--- NOTE | 2023-05-28 19:38 | PM.OBTRLD ---
OB L&D Triage Visit Information: Date of evaluation: 05/28/23 Reason for evaluation: decreased movement and threatened labor Comments/Additional reason(s) for visit: 27yo C. female at 27.1 wk IUP seen in Triage c/o abd pain and decreased FM since last night. Denies Nausea or vomiting. No LOF or bleeding, denies painful urination. Pt has Hx of early SAB and loss of 20 wk twin gestation. She denies fever and chills. Denies Sexual intercourse x 1 wk. UA- neg CBC normal Reviewed contractions and after Cx exam cervical is closed but it doesn't mean cervix will not change. Terbutaline 0.25mg SQ used to Tocolyze contractions.Risk and benefits reviewed. Pt states pain has almost resolved, will watch another 30-45 of observation to see if painful contractions return. Advised pt to increase fluids at home, and to avoid sex x 1 wk, she has visit in 1 wk advised to keep it so she can be reassessed. Pt understands. Evaluation: Baseline heart rate: 140 Variability: Average (6-10) monitor accelerations: Present 10x10 monitor decelerations: None Cervical dilation (cm): 0 Cervical effacement (%): 20 Laboratory results: Laboratory Tests 05/28/23 05/28/23 18:14 18:14 WBC 8.14 RBC 3.76 L Hgb 12.20 Hct 36.2 MCV 96.3 MCH 32.4 MCHC 33.7 RDW 14.1 Plt Count 173 MPV 12.0 H Neut % (Auto) 72.6 Lymph % (Auto) 18.3 [place] % (Auto) 5.7 Eos % (Auto) 2.3 Baso % (Auto) 0.4 Neut # (Auto) 5.91 Lymph # (Auto) 1.5 [place] # (Auto) 0.5 Eos # (Auto) 0.2 Baso # (Auto) 0.0 Nucleated RBC % (a uto) 0 Nucleated RBCs # 0.0 Urine Color Yellow Urine Appearance Cloudy A Urine pH 8 H Ur Specific Gravit y 1.015 Urine Protein Neg Urine Glucose (UA) Norm Urine Ketones Negative Urine Blood Neg Urine Nitrate Negative Urine Bilirubin Neg Prot Sulfosalicyli c Acd Negative Urine Urobilinogen Norm Ur Leukocyte Farida ase Negative Urine RBC 0-4 H Urine WBC 0-4 H Ur Squamous Epith Cells 0-4 H Amorphous Sediment 3+ Urine Bacteria None Urine Mucus 1+ Vital signs: Vital Signs - 24 hr 05/28/23 17:29 05/28/23 18:05 05/28/23 18:20 Pulse Rate 95 81 82 Blood Pressure 115/58 107/59 111/58 05/28/23 18:19 05/28/23 18:35 05/28/23 18:52 Pulse Rate 86 77 75 Blood Pressure 113/64 109/61 112/57 05/28/23 19:20 05/28/23 19:36 Pulse Rate 78 78 Blood Pressure 104/57 119/56 Care [place] Calculator Estimated Delivery Date Method Current WG Current Estimate 08/26/23 LMP (Certain) 27w 1d Specific Issues/Plans HX SAB at 20 wks with twins DEPRESSION Final Diagnosis Final Diagnosis (1) 27 weeks gestation of : Status: Acute Code(s): Z3A.27 - 27 weeks gestation of (2) uterine contractions in second trimester, antepartum: Plan: 1. PO hydration 2. Terbutaline 0.25mg SQ given 3. UA/CBC reviewed 4. Pelvic rest advised Status: Acute Code(s): O47.02 - False labor before 37 completed weeks of gestation, second trimester Other Information/Follow up Pt to keep appointment in [address] Ledesma Coding Level of Care Code Acute Code for Chg Fwd Diagnoses 27 weeks gestation of Z3A.27 uterine contractions in second trimester, antepartum O47.02
== END 2023-05-28 20:25 | disposition home or self-care (01) ==
LOC: OPOB 17:19 → OBGYN 17:20
PROVIDERS: Obstetrics & Gynecology; Visit Provider Obstetrics & Gynecology
DX: Z3A.27 27 weeks gestation of pregnancy (principal); O36.8120 Decreased fetal movements, second trimester, not applicable or unspecified
CPT/HCPCS: 36415; 81001; 85025; 96372; 99211; J3105

== ENCOUNTER 2023-05-29 14:11 | Outpatient (CLI) | payer BC, MEDICAID, SELFPAY ==
[2023-05-29 14:41] VITALS: BP 106/56; PULSE 97; TEMP 37
[2023-05-29 14:57] VITALS: BP 101/59; PULSE 92
[2023-05-29 15:00] VITALS: BMI 27.1
[2023-05-29 15:12] VITALS: BP 103/64; PULSE 100
== END 2023-05-29 15:30 | disposition home or self-care (01) ==
LOC: OPOB 14:11 → OBGYN 14:35
PROVIDERS: Visit Provider Obstetrics & Gynecology
DX: O26.899 Other specified pregnancy related conditions, unspecified trimester (principal); Z3A.00 Weeks of gestation of pregnancy not specified; N89.8 Other specified noninflammatory disorders of vagina
CPT/HCPCS: 59025; 99211

== ENCOUNTER → 2023-06-03 13:32 | Outpatient (BNVA) | payer BC, MEDICAID, SELFPAY | PROVIDERS: Visit Provider Obstetrics & Gynecology | DX: O09.899 Supervision of other high risk pregnancies, unspecified trimester (principal); Z3A.00 Weeks of gestation of pregnancy not specified | CPT/HCPCS: 81000 ==

== ENCOUNTER → 2023-06-17 09:57 | Outpatient (BNVA) | payer BC, MEDICAID, SELFPAY | PROVIDERS: Visit Provider Obstetrics & Gynecology | DX: O09.899 Supervision of other high risk pregnancies, unspecified trimester (principal) | CPT/HCPCS: 81000 ==

== ENCOUNTER → 2023-07-01 08:55 | Outpatient (BNVA) | payer BC, MEDICAID, SELFPAY | PROVIDERS: Visit Provider Obstetrics & Gynecology | DX: O09.899 Supervision of other high risk pregnancies, unspecified trimester (principal) | CPT/HCPCS: 81000 ==

== ENCOUNTER 2023-07-06 20:20 | Outpatient (CLI) | payer BC, MEDICAID, SELFPAY ==
[2023-07-06 20:20] VITALS: BMI 28.0
[2023-07-06 20:31] VITALS: BP 114/66; PULSE 111; TEMP 35.7
[2023-07-06 20:46] VITALS: BP 102/55; PULSE 110
[2023-07-06 20:47] VITALS: RESP 15
[2023-07-06 21:01] VITALS: BP 101/58; PULSE 103
[2023-07-06 21:05] VITALS: BP 101/58; PULSE 103; RESP 15
== END 2023-07-06 21:20 | disposition home or self-care (01) ==
LOC: OPOB 20:23 → OBGYN 20:26
PROVIDERS: Visit Provider Obstetrics & Gynecology
DX: O36.8190 Decreased fetal movements, unspecified trimester, not applicable or unspecified (principal); Z3A.00 Weeks of gestation of pregnancy not specified; R10.9 Unspecified abdominal pain
CPT/HCPCS: 59025; 99211

== ENCOUNTER → 2023-07-15 09:14 | Outpatient (BNVA) | payer BC, MEDICAID, SELFPAY | PROVIDERS: Visit Provider Nurse Practitioner Women's Health | DX: O09.899 Supervision of other high risk pregnancies, unspecified trimester (principal) | CPT/HCPCS: 81000; 87491; 87591 ==

== ENCOUNTER → 2023-07-29 15:00 | Outpatient (BNVA) | payer BC, MEDICAID, SELFPAY | PROVIDERS: Visit Provider Nurse Practitioner Women's Health | DX: O09.899 Supervision of other high risk pregnancies, unspecified trimester (principal) | CPT/HCPCS: 81000; 87081 ==

== ENCOUNTER → 2023-08-05 08:53 | Outpatient (BNVA) | payer BC, MEDICAID, SELFPAY | PROVIDERS: Visit Provider Obstetrics & Gynecology | DX: O09.899 Supervision of other high risk pregnancies, unspecified trimester (principal); Z3A.00 Weeks of gestation of pregnancy not specified | CPT/HCPCS: 81000 ==

== ENCOUNTER → 2023-08-12 09:07 | Outpatient (BNVA) | payer BC, MEDICAID, SELFPAY | PROVIDERS: Visit Provider Obstetrics & Gynecology | DX: O09.899 Supervision of other high risk pregnancies, unspecified trimester (principal); Z3A.00 Weeks of gestation of pregnancy not specified | CPT/HCPCS: 81000 ==

== ENCOUNTER → 2023-08-19 09:16 | Outpatient (BNVA) | payer BC, MEDICAID, SELFPAY | PROVIDERS: Visit Provider Nurse Practitioner Women's Health | DX: O09.899 Supervision of other high risk pregnancies, unspecified trimester (principal); Z3A.00 Weeks of gestation of pregnancy not specified | CPT/HCPCS: 81000 ==

== ENCOUNTER 2023-08-20 14:27 | Outpatient (CLI) | payer BC, MEDICAID, SELFPAY ==
[2023-08-20 14:25] VITALS: BMI 28.5
[2023-08-20 14:43] VITALS: BP 123/66; PULSE 116
[2023-08-20 15:04] VITALS: BP 108/60; PULSE 104
[2023-08-20 15:23] VITALS: BP 107/61; PULSE 100
== END 2023-08-20 15:40 | disposition home or self-care (01) ==
LOC: OPOB 14:27 → OBGYN 14:28
PROVIDERS: Visit Provider Obstetrics & Gynecology
DX: O26.899 Other specified pregnancy related conditions, unspecified trimester (principal); Z3A.00 Weeks of gestation of pregnancy not specified; R10.9 Unspecified abdominal pain; N89.8 Other specified noninflammatory disorders of vagina
CPT/HCPCS: 59025; 99211

== ENCOUNTER 2023-08-27 07:00 | Inpatient (IN) | payer BC, MEDICAID, SELFPAY ==
[2023-08-26 19:15] VITALS: BP 119/73; PULSE 109; TEMP 35.9
[2023-08-26 20:03] LABS: Nitrazine Paper, PH Positive
[2023-08-26 20:06] LABS: Actim Prom Positive
[2023-08-26 21:19] LABS: Basophils % 0.3 %; Eosinophils # 0.1 10^3/uL (0.0-0.8); Eosinophils % 1.2 %; Hematocrit 39.8 % (36-47); Lymphocytes # 2.2 10^3/uL (0.8-4.8); Lymphocytes % 20.4 %; Mean Corpuscular HGB Conc 34.2 g/dL (30-55); Mean Corpuscular Hemoglobin 32.5 pg (27-33); Mean Corpuscular Volume 95.2 fl (85-98); Mean Platelet Volume 12.9 fL (7.4-10.4); Monocytes # 0.6 10^3/uL (0.2-0.9); Monocytes % 5.2 %; Neutrophils # 7.82 10^3/uL (1.8-7.7); Neutrophils % 72.2 %; Nucleated Red Blood Cells % 0 %; Platelet Count 163 10^3/cmm (157-399); Red Blood Count 4.18 10^6/uL (3.85-5.65); Red Cell Distribution Width 14.3 % (12.1-15.1); White Blood Count 10.83 10^3/uL (3.29-11.43)
[2023-08-26 21:27] VITALS: BP 112/72; PULSE 78; RESP 18; TEMP 36.8
[2023-08-26 22:45] VITALS: BP 119/68; PULSE 77
[2023-08-26 23:08] VITALS: TEMP 36.8
[2023-08-26] MEDS: dextrose 5%-lactated ringers 1,000 ML 125 ML IV (23:35)
[2023-08-27] VITALS (20 sets, daily range): BP systolic 101–137; BP diastolic 54–102; PULSE 69–101; RESP 17–18; TEMP 35.9–36.9; O2SAT 97–98
[2023-08-27] MEDS: ampicillin 2,000 MG in sodium chloride 0.9% (plus) 50 ML 100 MG IV (00:13)
[2023-08-27] MEDS: ampicillin 1,000 MG in sodium chloride 0.9% (plus) 50 ML 100 MG IV ×2 (04:24→09:21)
[2023-08-27] MEDS: fentaNYL 50 mcg/mL INJ 2mL IVP (06:32)
--- NOTE | 2023-08-27 08:59 | PM.OPHPUD ---
Labor & Delivery H&P Update Date of Procedure: August 27, 2023 Date H&P Performed: 07/18/21 H&P update information: I have reviewed H&P completed within last 30 days, I have examined patient prior to procedure and Changes to prior documentation as noted here (PROM, Cervix 3) Admission Diagnosis:
--- NOTE | 2023-08-27 08:59 | PM.DELIVERY ---
Delivery Note: Date of delivery: August 27, 2023 Pre-delivery diagnoses: Term Premature rupture membranes Post-delivery diagnoses: Term Premature rupture membranes Procedure: Spontaneous vaginal delivery Delivering Physician: Eh Cruz MD Estimated blood loss (mL): 300 Delivery: The patient was noted to be complete and pushing, so was placed in the dorsal lithotomy position, prepped and draped in the usual sterile fashion for a vaginal delivery. Pt. noted to have no anesthesia. At 0835 the patient delivered a viable 40 weeks female weighing 3250 g with scores of 8 and 9 at one and five minutes, respectively. The vertex was delivered spontaneously over intact perineum. The patient was asked to push and the head delivered spontaneously in the SANTO position, over an intact perineum. A nuchal cord was checked and 1 noted, and delivered through around head as necessary. The anterior shoulder delivered easily and the posterior shoulder followed. The remainder of the infant was easily delivered and the oropharynx and nasopharynx was bulb suctioned. The was noted to have spontaneous cry and spontaneous movement of all four extremities. The cord was clamped x 2 and cut and noted to have 2 arteries and one vein. The infant was passed to the mother's abdomen where nursing personnel were in attendance. The placenta delivered intact spontaneously and the uterus was explored. 20 units of Pitocin was placed in the IV bag to firm the uterus. Examination of the cervix and vaginal vault did not reveal any lacerations. A vaginal pack was then placed. Examination of the perineum showed no lacerations. The vaginal pack was then removed. The patient tolerated this procedure well, and recovered in L&D with her infant in their LDR room. All sponge and needle counts were correct. History History History 4 Term 1 0 Miscarriages/Ectopic 2 Living Children 1 A&P Assessment and plan (1) Term delivered: (2) Premature rupture of membranes: Coding Level of Care Code Acute Code for Chg Fwd Diagnoses Term delivered O80 Premature rupture of membranes O42.90
[2023-08-27] MEDS: HYDROcodone-acetaminophen 5-325 mg Tablet PO ×2 (09:22→20:28)
[2023-08-27] MEDS: lanolin oint 7 gm 1 APPLIC TOPICAL (09:22)
[2023-08-27] MEDS: benzocaine-menthol 78 gm Canister 1 SPRAY TOPICAL (09:22)
[2023-08-27] MEDS: nicotine 14 mg Patch 1 PATCH TRANSDERMA (10:32)
[2023-08-27] MEDS: ibuprofen 800 mg tablet PO ×2 (14:27→20:28)
[2023-08-27] MEDS: docusate sodium 100 mg Capsule PO (20:28)
[2023-08-27 20:50] LABS: Hematocrit 36.8 % (36-47); Mean Corpuscular Hemoglobin 33.2 pg (27-33); Mean Corpuscular Volume 97.6 fl (85-98); Mean Platelet Volume 12.5 fL (7.4-10.4); Platelet Count 149 10^3/cmm (157-399); Red Blood Count 3.77 10^6/uL (3.85-5.65); Red Cell Distribution Width 14.5 % (12.1-15.1); White Blood Count 11.23 10^3/uL (3.29-11.43)
[2023-08-28 04:00] VITALS: BP 104/62; PULSE 84; RESP 18; TEMP 36.7; O2SAT 98
[2023-08-28] MEDS: nicotine 14 mg Patch 1 PATCH TRANSDERMA (08:45)
[2023-08-28] MEDS: prenatal vitamin Capsule 1 CAP PO (08:46)
[2023-08-28] MEDS: ibuprofen 800 mg tablet PO (08:46)
[2023-08-28] MEDS: docusate sodium 100 mg Capsule PO (08:46)
[2023-08-28] MEDS: HYDROcodone-acetaminophen 5-325 mg Tablet PO (08:46)
--- NOTE | 2023-08-28 10:40 | PM.OBGYDC ---
Discharge Providers [employer]ANCH [employer]OLLER Date of Admission: 08/27/23 07:00 Date of Discharge: 08/28/23 Attending Provider at Admission: Eh Cruz MD Attending Provider at Discharge: Eh Cruz MD Diagnoses at Discharge Discharge Diagnosis (1) Term delivered: Status: Acute (2) Premature rupture of membranes: Status: Acute Reason for Visit Reason for Visit: contractions Hospital Course Hospital Course Mrs. Loera 28-year-old female with term and delivery referring contractions and leakage of fluid. Upon examination she was diagnosed with premature rupture membranes she was admitted to labor and delivery and allowed to progress to have a spontaneous vaginal delivery without complications. observation was uneventful. She is afebrile hemodynamically able day 1. Tolerating diet well. Ambulating without difficulty. She was counseled regarding pelvic rest for 6 weeks (no sex, no tampons, no vaginal douches). Return to the emergency room if any fever, increased bleeding or pain. Information Peripartum Data: Infant Delivery Method: Vaginal Physical Exam Narrative: GA; alert and oriented x 3 HEENT: normal Breasts: engorged Nipples - skin intact Lungs; clear to auscultation Heart: regular rhythm, no murmurs. Abd: Appropriately tender. BS+. Uterine fundus below umbilicus. No Fundal Tenderness. Perineum: normal lochia. Extremities: no edema, no cyanosis, no tenderness. History History History 4 Term 1 0 Miscarriages/Ectopic 2 Living Children 1 Discharge Data Studies Completed and Pending Laboratory Results WBC 11.23 10^3/uL (3.29-11.43) 08/27/23 20:43 RBC 3.77 10^6/uL (3.85-5.65) L 08/27/23 20:43 Hgb 12.50 g/dL (11.27-16.99) 08/27/23 20:43 Hct 36.8 % (36-47) 08/27/23 20:43 MCV 97.6 fl (85-98) 08/27/23 20:43 MCH 33.2 pg (27-33) H 08/27/23 20:43 MCHC 34.0 g/dL (30-55) 08/27/23 20:43 RDW 14.5 % (12.1-15.1) 08/27/23 20:43 Plt Count 149 10^3/cmm (157-399) L 08/27/23 20:43 MPV 12.5 fL (7.4-10.4) H 08/27/23 20:43 Neut % (Auto) 72.2 % 08/26/23 21:05 Lymph % (Auto) 20.4 % 08/26/23 21:05 Hughes % (Auto) 5.2 % 08/26/23 21:05 Eos % (Auto) 1.2 % 08/26/23 21:05 Baso % (Auto) 0.3 % 08/26/23 21:05 Neut # (Auto) 7.82 10^3/uL (1.8-7.7) H 08/26/23 21:05 Lymph # (Auto) 2.2 10^3/uL (0.8-4.8) 08/26/23 21:05 Hughes # (Auto) 0.6 10^3/uL (0.2-0.9) 08/26/23 21:05 Eos # (Auto) 0.1 10^3/uL (0.0-0.8) 08/26/23 21:05 Baso # (Auto) 0.0 10^3/uL (0.0-0.1) 08/26/23 21:05 Nucleated RBC % (auto) 0 % 08/26/23 21:05 Nucleated RBCs # 0.0 /100WBC 08/26/23 21:05 Insulin-like GF I Positive 08/26/23 19:52 Fluid pH (paper) Positive H 08/26/23 19:52 Vitals Last Vital Signs Temp 98.1 F 08/28/23 04:00 Pulse 84 08/28/23 04:00 Resp 18 08/28/23 04:00 BP 104/62 08/28/23 04:00 Pulse Ox 98 08/28/23 04:00 O2 Del Method Room Air 08/28/23 04:00 Results Labs OB ([facility]): Obstetrics US 06/05/21 Blood Type A Positive 02/19/23 Antibody Screen Negative 02/19/23 Hct 36.8 % (36-47) 08/27/23 Hgb 12.50 g/dL (11.27-16.99) 08/27/23 Rho(D) Type Positive 02/19/23 Plt Count 149 10^3/cmm (157-399) L 08/27/23 Hep Bs Antigen Non-reactive (Nonreactive) 02/19/23 Hepatitis C Antibody Non-reactive (Nonreactive) 02/19/23 Rubella IgG Antibody 181.6 IU/mL (0.0-10.0) H 02/19/23 RPR Nonreactive (Nonreactive) 02/19/23 HIV 1&2 Ab & HIV 1 Ag Non-reactive (Non-Reactiv) 02/19/23 C.trachomatis RNA (TMA) Not detected (NOT DETECTED) 07/15/23 N.gonorrhoeae RNA (TMA) Not detected (NOT DETECTED) 07/15/23 Chlamydia/GC Comment See note 07/15/23 Cystic Fibrosis Screen Negative 02/12/23 Gest Glucose Tolerance 118 mg/dL 05/07/23 Ser , Semi-Qnt 0.50 mIU/mL 09/10/21 HCG, Qual Positive (Negative) H 03/26/21 Urine Opiates Screen Negative ng/mL (Negative) 02/19/23 Ur Barbiturates Screen Negative ng/mL (Negative) 02/19/23 Ur Phencyclidine Scrn Negative ng/mL (Negative) 02/19/23 Ur Amphetamines Screen Negative ng/mL (Negative) 02/19/23 U Benzodiazepines Scrn Negative ng/mL (Negative) 02/19/23 Urine Cocaine Screen Negative ng/mL (Negative) 02/19/23 U Marijuana (THC) Screen Negative ng/mL (Negative) 02/19/23 Micro Urine Specimen 02/19/23 Pap Smear Interpret See note A 04/17/21 Discharge Plan Discharge Patient Disposition: Home Condition: Stable Prescriptions: New ibuprofen 800 mg tablet 800 mg PO TID PRN (Reason: pain) Qty: 60 0RF acetaminophen 325 mg capsule 325 mg PO Q4H PRN (Reason: fever or pain) Qty: 60 0RF Continued prenat.vits,ladonna,efb-gmgs-gortu Tablet 1 tab PO DAILY Discharge Orders: Discharge Order (Routine); Ordered 08/28/23 Ordered By: Eh Cruz Referrals: Eh Cruz MD [Physician] - 6 Weeks ([facility]23 to make your 6 week follow up. ) Discharge Diet: Usual diet Discharge Activity: Limit activity as instructed Patient Instructions: Depression (GEN), Perineal Care (GEN), Bleeding (GEN), Preeclampsia and Eclampsia After Delivery (GEN), Hemorrhage (DC), OB Discharge Report, OB Food/Drug Interaction Guide, OB Care at Home, Opioid Safety, OB Proud Parent Packet, OB Vaginal Deliveries, OB Vaginal Deliveries - [facility], Abnormal Bleeding Activity Restrictions/Additional Instructions: 1. Please call [facility] on next working day to make your appointment in 6 weeks. 2. Please stay home until you come back to the clinic on first post-hospatilization check up. 3. Please follow instructions on your medications CAREFULLY. 4. If you have abdominal incision, do not cover it unless dressing is necessary because of drainage. OK to shower, but avoid bath. Leave steri-strips until they fall off. If they are still on one week after surgery, you may remove them. 5. If you had vaginal surgery or vaginal repair, Dr. Cruz may instruct you to take SITZ bath. 6. Yellow, blood tinged odorous vaginal discharge is usually normal after hysterectomy or vaginal surgeries. 7. No SEXUAL INTERCOURSE, tampons, or douches until you are completely released from the post-operative care. 8. Avoid constipation by eating right and maybe using some Metamucil or Milk of Magnesia. 9. All prescription refills are given during the working hours. Please do no wait till it runs out. Call the clinic at [phone] before your medication runs out. The clinic will get in touch with your doctor to prescribe medications if necessary. 10. Please remain within 40 mile radius from our hospital because emergencies do happen now and then during the post-operative period. 11. If you have stairs at home, take one step at a time slowly and minimize the number of trips. It helps to stay in one floor for the next few days. No lifting except what you can lift by one hand until you are released from the post-operative care. 12. Driving is discouraged until you are well healed. It may be 3-4 weeks before you feel strong enough to drive. You should be able to turn and look through the rear window without pain and you should be able to push the brake pedal very hard without pain before you drive. No fast rules, but SAFETY should be your primary concern. DO NOT drive if you are on sedating medications such as narcotics. 13. Call the clinic (during working hours) to make urgent appointment or go to the Emergency room, if any of the following occurs: i. Vaginal bleeding becomes heavy, more than a period. ii. Incision becomes red and sore, or drains pus. iii. Your TEMPERATURE is over 100.4F or you have chill. iv. IV site becomes red and swollen (a little ``knot?? is usually OK) v. Persistent nausea and vomiting vi. Persistent constipation or diarrhea vii. Rash or allergic reaction to medications. Discharge Attestations [employer]CH [employer]OLLER Time Spent in Discharge Care*: greater than 30 min Coding Level of Care Code Acute Code for Chg Fwd Diagnoses Term delivered O80 Premature rupture of membranes O42.90
[2023-08-28 11:06] VITALS: BP 103/63; PULSE 73; RESP 17
[2023-08-28 11:34] VITALS: BP 103/63; PULSE 73; RESP 17
== END 2023-08-28 11:34 | disposition home or self-care (01) | DRG 807 ==
LOC: OPOB 08:51 → OBGYN 08:51
PROVIDERS: Admitting Provider Obstetrics & Gynecology; Visit Provider Obstetrics & Gynecology
DX: O42.92 Full-term premature rupture of membranes, unspecified as to length of time between rupture and onset of labor (principal); Z37.0 Single live birth; Z3A.40 40 weeks gestation of pregnancy; O48.0 Post-term pregnancy
CPT/HCPCS: 36415; 59025; 59409; 81000; 83986; 84112; 85025; 85027; 96374; 99211; J0290; J3010; J7121